=== PATIENT | male | born 1940 | race Caucasian/White ===

== ENCOUNTER → 2016-10-18 | Outpatient (CLI) | payer OTHER ==
[~2016-10-18] MED LIST: FENO54TA PO; FENOFIBRATE PO; GLC500 PO; INSU70IN2 SC; LISI20TA3 PO; MECL1TAB42 PO; MELO15TA4 PO; MULT60CA PO; MXZC25 PO; SIMV40TA2 PO
[2016-10-18 09:47] LABS: ALT/SGPT 25 U/L (12-78); AST/SGOT 15 U/L (15-37); BLOOD UREA NITROGEN 17 mg/dl (7-18); BUN/CREATININE RATIO 13.8 (10-20); CALCIUM 8.7 mg/dl (8.5-10.1); CARBON DIOXIDE 26 mmol/L (21-32); CHLORIDE 107 mmol/L (98-107); GLUCOSE 115 mg/dl (70-99); POTASSIUM 3.6 mmol/L (3.5-5.1); SODIUM 142 mmol/L (136-145)
[2016-10-18 09:51] LABS: ALB/GLOB RATIO 1.2 (0.9-2); ALKALINE PHOSPHATASE 62 U/L (45-117); CHOLESTEROL 114 mg/dl (0-200); CHOLESTEROL/HDL RATIO 2.3; HDL CHOLESTEROL 50 mg/dl; TRIGLYCERIDES 154 mg/dl (0-150); VERY LOW DENSITY LIPOPROT CALC 31 mg/dl
[2016-10-18 10:39] LABS: ESTIMATED AVERAGE GLUCOSE 160 mg/dl; HA1C FLAG Normal (Normal)
== END | disposition home or self-care (01) ==
LOC: C.LAB 07:03
PROVIDERS: ATTEND Internal Medicine
DX: E11.65 Type 2 diabetes mellitus with hyperglycemia (principal); E78.5 Hyperlipidemia, unspecified; E66.09 Other obesity due to excess calories

== ENCOUNTER → 2016-12-11 | Outpatient (CLI) | payer OTHER ==
[~2016-12-11] MED LIST changes: -FENO54TA PO; -MECL1TAB42 PO; -MELO15TA4 PO
--- NOTE | 2016-12-11 13:27 | DIAGNOSTIC IMAGING REPORT ---
Venous Doppler left leg LEFT VENOUS DOPP LOWER EXT UNILAT CLINICAL HISTORY: LLE PAIN Swelling, r/o DVT TECHNIQUE: Venous Doppler COMPARISON STUDY: None FINDINGS: Normal venous Doppler. 3 cm complex popliteal cyst. IMPRESSION: No evidence for deep venous thrombosis Electronically signed by: Tito Clark M.D. 12/11/2016 1:25 PM Dictated Date/Time: 12/11/2016 1:21 PM
== END | disposition home or self-care (01) ==
LOC: C.ULTRBC 12:36
PROVIDERS: ATTEND Orthopaedic Surgery
DX: M79.605 Pain in left leg (principal)

== ENCOUNTER → 2017-02-13 | Outpatient (CLI) | payer OTHER ==
[~2017-02-13] MED LIST changes: +FENO54TA PO; +MECL1TAB42 PO; +MELO15TA4 PO
[2017-02-13 10:05] LABS: BLOOD UREA NITROGEN 23 mg/dl (7-18); BUN/CREATININE RATIO 19.2 (10-20); CALCIUM 8.9 mg/dl (8.5-10.1); CARBON DIOXIDE 30 mmol/L (21-32); CHLORIDE 108 mmol/L (98-107); GLUCOSE 122 mg/dl (70-99); POTASSIUM 4.1 mmol/L (3.5-5.1); SODIUM 145 mmol/L (136-145)
[2017-02-13 10:52] LABS: ESTIMATED AVERAGE GLUCOSE 143 mg/dl; HA1C FLAG Normal (Normal)
== END | disposition home or self-care (01) ==
LOC: C.LAB 07:32
PROVIDERS: ATTEND Internal Medicine
DX: E11.9 Type 2 diabetes mellitus without complications (principal)

== ENCOUNTER → 2017-03-08 | Outpatient (CLI) | payer OTHER ==
--- NOTE | 2017-03-08 11:30 | DIAGNOSTIC IMAGING REPORT ---
BILATERAL CAROTID DOPPLER STUDY HISTORY: Mental status change NO HAND RIGGER COMPARISON: None. TECHNIQUE: Real-time, grayscale, and color Doppler sonography of the carotid arteries was performed. Imaging reviewed in the transverse and longitudinal planes. All measurements were calculated based on NASCET criteria. FINDINGS: Antegrade flow is seen in the bilateral vertebral arteries. The brachial pressures are hemodynamically similar. Minimal plaque formation The peak systolic velocity within the right ICA is 86. The peak systolic velocity within the left ICA is 96. The patient declined blood pressure cuff evaluation IMPRESSION: No hemodynamically significant stenosis seen within the carotid arteries. Electronically signed by: Tito Clark M.D. 03/08/2017 11:29 AM Dictated Date/Time: 03/08/2017 11:28 AM
--- NOTE | 2017-03-15 07:36 | CODING QUERY MEDICAL NECESSITY ---
CQSUPPORTING DIAGNOSIS NEEDED A supporting diagnosis is required for the test/procedure performed on this patient in order for us to be reimbursed by the patient's insurance. Please provide a supporting diagnosis for the following test/procedure listed below next to the test name along with your signature. *If there is no additional diagnosis for this patient that would support the following test/procedure please document that below next to the test/procedure. Test(s)/Procedure(s) that require a supporting diagnosis: DOS 03/08/17 NON-INVASIVE CEREBROBASCULAR ARTERIOGRAM Provider Signature: Date: Thank you Angelina Cordon Health Information Management Once completed, please kindly fax back to [phone] For questions please call [phone]
== END | disposition home or self-care (01) ==
LOC: C.ULTR 10:18
PROVIDERS: ATTEND Internal Medicine
DX: R42 Dizziness and giddiness (principal)

== ENCOUNTER → 2017-06-20 | Outpatient (CLI) | payer OTHER ==
[~2017-06-20] MED LIST changes: -FENO54TA PO; -MECL1TAB42 PO; -MELO15TA4 PO
[2017-06-20 09:39] LABS: BASO % 0.5 %; BASO ABS # 0.05 K/uL (0-0.2); COMPLETE YES; EOS % 2.8 %; IG% 0.1 %; LYMPH % 37.6 %; LYMPH ABS # 3.59 K/uL (1.2-3.4); MEAN CELL VOLUME 88.1 fL (80-100); MEAN CORPUSCULAR HEMOGLOBIN 29.3 pg (25-34); MEAN CORPUSCULAR HGB CONC 33.3 g/dl (32-36); MONO % 6.7 %; NEUT % 52.3 %; PLATELET COUNT 225 K/uL (130-400); RED BLOOD COUNT 4.88 M/uL (4.7-6.1); WHITE BLOOD COUNT 9.56 K/uL (4.8-10.8)
[2017-06-20 10:05] LABS: ESTIMATED AVERAGE GLUCOSE 154 mg/dl; HA1C FLAG Normal (Normal)
[2017-06-20 10:06] LABS: ALT/SGPT 22 U/L (12-78); AST/SGOT 18 U/L (15-37); BLOOD UREA NITROGEN 20 mg/dl (7-18); BUN/CREATININE RATIO 18.2 (10-20); CARBON DIOXIDE 28 mmol/L (21-32); CHLORIDE 106 mmol/L (98-107); CHOLESTEROL 145 mg/dl (0-200); GLUCOSE 114 mg/dl (70-99); POTASSIUM 3.7 mmol/L (3.5-5.1); SODIUM 141 mmol/L (136-145); TRIGLYCERIDES 229 mg/dl (0-150); VERY LOW DENSITY LIPOPROT CALC 46 mg/dl
[2017-06-20 10:09] LABS: ALB/GLOB RATIO 1.1 (0.9-2); ALKALINE PHOSPHATASE 60 U/L (45-117); CHOLESTEROL/HDL RATIO 3.1; HDL CHOLESTEROL 47 mg/dl
[2017-06-20 10:48] LABS: RATIO 10.2 mcg/mg (0-30.0)
== END | disposition home or self-care (01) ==
LOC: C.LAB 07:06
PROVIDERS: ATTEND Internal Medicine
DX: E11.9 Type 2 diabetes mellitus without complications (principal); I10 Essential (primary) hypertension; E78.5 Hyperlipidemia, unspecified

== ENCOUNTER 2017-09-06 08:19 | Emergency (ER) | payer OTHER ==
[~2017-09-06] VITALS: Ht 172.7 cm; Wt 105.0 kg
[2017-09-06 08:22] VITALS: TEMP 36.7; Ht 172.7 cm; Wt 105.0 kg
[2017-09-06] MEDS ORDERED: SODIUM CHLORIDE 0.9% 500ML 500 ML IV STA (08:41)
[2017-09-06] MEDS ORDERED: SCOPOLAMINE 1.5 MG TDSY TD STA (08:41)
--- NOTE | 2017-09-06 08:50 | EMERGENCY ROOM VISIT NOTE ---
History Report prepared by Torri: Yevgeniy Meeks Under the Supervision of: Dr. Artem Zuñiga M.D. First contact with patient: 08:31 Chief Complaint: VERTIGO Stated Complaint: VERTIGO,DIZZY,LIGHTED HEADED Nursing Triage Summary: Pt presents with c/o dizziness and lightheadedness that began approx midnight. Denies cp or headache. Pt states, "Maybe a little SOB" with exertion. Pt is diabetic, BSG last night was 270, 164 this morning. States normal is 110 in the morning. History of Present Illness The patient is a 77 year old male who presents to the Emergency Room with complaints of intermittent dizziness and lightheadedness beginning 8.5 hours ago. The patient states he was starting to go to sleep when he started falling against the wall on his way to bed. He reports he cannot stand or walk without getting dizzy, and he does not remember if it goes away. The patient notes moving his head from side to side causes mild dizziness. He states lying flat makes his discomfort go away. The patient reports he had similar symptoms back in February, was given a scopolamine patch, and told it was vertigo. He notes his blood sugar was high last night after consuming sweets. The patient states he was given meclizine at 0100 and 0630. He denies abdominal pain. Source of History: patient Onset: 8.5 hours ago Position: other (global) Quality: other (dizziness and lightheadedness) Timing: intermittent Modifying Factors (Worsening): other (standing, moving head from side to side) Modifying Factors (Relieving): other (lying down) Associated Symptoms: No abdominal pain Review of Systems See HPI for pertinent positives & negatives. A total of 10 systems reviewed and were otherwise negative. Past Medical & Surgical Medical Problems: (1) Diabetes (2) HLD (hyperlipidemia) (3) HTN (hypertension) Family History Patient reports no known family medical history. Social History Smoking Status: Former Smoker Marital Status: Occupation Status: retired Current/Historical Medications Scheduled Fenofibrate (Tricor), 54 MG PO DAILY Insulin Isophan/Regular (Novolin 70/30), 80 UNITS SC QAM Insulin Isophan/Regular (Novolin 70/30), 45 UNITS SC QPM Lisinopril (Prinivil), 20 MG PO BID Meloxicam (Meloxicam), 15 MG PO DAILY Metformin Hcl (Glucophage *), 500 MG PO BID Multiple Vitamins W/ Minerals (Preservision Areds 2), 1 CAP PO BID Simvastatin (Zocor), 40 MG PO QPM Triamterene/Hctz (Triamterene/Hctz 37.5-25MG Tab), 1 TAB PO QAM Scheduled PRN Meclizine Hcl (Meclizine Hcl), 1 TAB PO TID PRN for Dizziness or Vertigo Allergies Coded Allergies: Aspirin (Verified Adverse Reaction, Unknown, "BLEEDS IN STOMACH IF TAKES TOO MUCH", 09/16/15) Physical Exam Vital Signs Date Time Temp Pulse Resp B/P (MAP) Pulse Ox O2 Delivery O2 Flow Rate FiO2 09/06/17 12:26 68 20 137/80 97 09/06/17 11:52 61 20 155/75 97 Room Air 58 158/89 77 167/95 09/06/17 11:26 64 20 137/73 98 Room Air 09/06/17 11:26 97 Room Air 09/06/17 09:34 96 Room Air 09/06/17 09:33 59 16 129/66 96 Room Air 09/06/17 08:48 57 09/06/17 08:22 36.7 62 18 147/73 95 Room Air Physical Exam GENERAL: Patient is a healthy-appearing well-nourished 77 year old male. HEAD: Normocephalic atraumatic EYES: Ocular movements intact pupils equal and react to light. Horizontal nystagmus of John's Hallpike maneuver. OROPHARYNX mucous membranes are moist no exudates present no erythema or edema present NECK: Supple no nuchal rigidity CHEST: Good equal expansion LUNGS: Clear and equal to auscultation CARDIAC: Normal S1 and S2 ABDOMEN: Soft nontender no guarding BACK: No CVA tenderness EXTREMITIES: No pain upon palpation normal muscle strength in all groups no clubbing cyanosis or edema NEURO: Patient is following commands and answering questions appropriately. Alert and oriented x3 Cranial Nerves 2-12 grossly intact Medical Decision & Procedures Laboratory Results 09/06/17 08:45 Red Blood Count 4.37, Mean Corpuscular Volume 88.8, Mean Corpuscular Hemoglobin 29.5, Mean Corpuscular Hemoglobin Concent 33.2, Mean Platelet Volume 10.3, Neutrophils (%) (Auto) 51.2, Lymphocytes (%) (Auto) 34.7, Monocytes (%) (Auto) 10.5, Eosinophils (%) (Auto) 2.9, Basophils (%) (Auto) 0.4, Neutrophils # (Auto ) 4.09, Lymphocytes # (Auto) 2.77, Monocytes # (Auto) 0.84, Eosinophils # (Auto ) 0.23, Basophils # (Auto) 0.03 09/06/17 08:45 Test 09/06/17 08:45 09/06/17 08:49 09/06/17 11:20 White Blood Count 7.98 K/uL (4.8-10.8) Red Blood Count 4.37 M/uL (4.7-6.1) Hemoglobin 12.9 g/dL (14.0-18.0) Hematocrit 38.8 % (42-52) Mean Corpuscular Volume 88.8 fL (80-100) Mean Corpuscular Hemoglobin 29.5 pg (25-34) Mean Corpuscular Hemoglobin Concent 33.2 g/dl (32-36) Platelet Count 204 K/uL (130-400) Mean Platelet Volume 10.3 fL (7.4-10.4) Neutrophils (%) (Auto) 51.2 % Lymphocytes (%) (Auto) 34.7 % Monocytes (%) (Auto) 10.5 % Eosinophils (%) (Auto) 2.9 % Basophils (%) (Auto) 0.4 % Neutrophils # (Auto) 4.09 K/uL (1.4-6.5) Lymphocytes # (Auto) 2.77 K/uL (1.2-3.4) Monocytes # (Auto) 0.84 K/uL (0.11-0.59) Eosinophils # (Auto) 0.23 K/uL (0-0.5) Basophils # (Auto) 0.03 K/uL (0-0.2) RDW Standard Deviation 44.5 fL (36.4-46.3) RDW Coefficient of Variation 13.5 % (11.5-14.5) Immature Granulocyte % (Auto) 0.3 % Immature Granulocyte # (Auto) 0.02 K/uL (0.00-0.02) Anion Gap 7.0 mmol/L (3-11) Est Creatinine Clear Calc Drug Dose 63.2 ml/min Estimated GFR () 70.7 Estimated GFR (Non- 61.0 BUN/Creatinine Ratio 21.4 (10-20) Calcium Level 8.7 mg/dl (8.5-10.1) Total Bilirubin 0.2 mg/dl (0.2-1) Direct Bilirubin < 0.1 mg/dl (0-0.2) Aspartate Amino Transf (AST/SGOT) 16 U/L (15-37) Alanine Aminotransferase (ALT/SGPT) 22 U/L (12-78) Alkaline Phosphatase 60 U/L (45-117) Total Creatine Kinase 92 U/L (39-308) Creatine Kinase MB 1.8 ng/ml (0.5-3.6) Creatine Kinase MB Ratio 2.0 (0-3.0) Troponin I < 0.015 ng/ml (0-0.045) Total Protein 6.7 gm/dl (6.4-8.2) Albumin 3.3 gm/dl (3.4-5.0) Thyroid Stimulating Hormone (TSH) 1.170 uIu/ml (0.300-4.500) Bedside Glucose 171 mg/dl (70-99) Urine Color YELLOW Urine Appearance CLEAR (CLEAR) Urine pH 7.0 (4.5-7.5) Urine Specific [place] 1.021 (1.000-1.030) Urine Protein NEG (NEG) Urine Glucose (UA) TRACE (NEG) Urine Ketones NEG (NEG) Urine Occult Blood 2+ (NEG) Urine Nitrite NEG (NEG) Urine Bilirubin NEG (NEG) Urine Urobilinogen NEG (NEG) Urine Leukocyte Esterase MODERATE (NEG) Urine WBC (Auto) >30 /hpf (0-5) Urine RBC (Auto) 10-30 /hpf (0-4) Urine Hyaline Casts (Auto) 1-5 /lpf (0-5) Urine Epithelial Cells (Auto) >30 /lpf (0-5) Urine Bacteria (Auto) NEG (NEG) Labs reviewed by ED physician. Medications Administered Medications (Trade) Dose Ordered Sig/Kayla Route Start Time Stop Time Status Last Admin Dose Admin Sodium Chloride 500 ml @ 999 mls/hr Q31M STAT IV 09/06/17 08:41 09/06/17 09:12 DC 09/06/17 08:41 999 MLS/HR Scopolamine (Transderm-Scop Patch) 1.5 mg NOW STAT TD 09/06/17 08:41 09/06/17 08:43 DC 09/06/17 09:27 1.5 MG ECG Indication: other (dizziness and lightheadedness) Rate (beats per minute): 65 Rhythm: sinus rhythm Findings: no acute ischemic change, no ectopy, other (Old inferior infarct) ED Course 0834: Past medical records reviewed. The patient was evaluated in room A04B. A complete history and physical examination was performed. The patient states he would like to be treated for vertigo and would not like to receive a full work up. 0841: Ordered Scopolamine .5mg TD, Sodium Chloride 500 ml @ 999 mls/hr 1103: I reevaluated the patient, and he is feeling better. 1201: Upon reexamination the patient is resting and feeling better. I discussed results and treatment plan with the patient. He verbalizes agreement and understanding. The patient is ready for discharge. Medical Decision Differential diagnosis: Etiologies such as benign positional vertigo, dehydration, hypovolemia, anemia, tumor, infection, hypoglycemia, electrolyte abnormalities, cardiac sources, intracerebral event, toxicologic, neurologic, as well as others were entertained. This is a 77-year-old male who presents emergency department complaining of vertigo that presents during a period of high volume and high acuity to the emergency department. The patient reports she has a history of vertigo previously. He reports he recently had a CAT scan of the head and is refusing the recommendation for a CAT scan of the head. He has normal laboratory work. He was given a scopolamine patch and the patient has a very taken meclizine at home. Repeat examination revealed much improvement the patient's symptoms. I do feel that the patient is well enough to be discharged home for follow-up this primary care physician. Patient was in agreement with the treatment plan. Medication Reconcilliation Current Medication List: was personally reviewed by me Blood Pressure Screening Patient's blood pressure: Elevated blood pressure Blood pressure disposition: Referred to PCP Impression Primary Impression: Benign positional vertigo Scribe Attestation The scribe's documentation has been prepared under my direction and personally reviewed by me in its entirety. I confirm that the note above accurately reflects all work, treatment, procedures, and medical decision making performed by me. Departure Information Dispostion Home / Self-Care Prescriptions Meclizine Hcl (MECLIZINE HCL) 25 Mg Tab 1 TAB PO TID Y for Dizziness or Vertigo for 10 Days, #30 TAB Prov: Artem Zuñiga MD 09/06/17 Referrals Emerson Reyes M.D. (PCP) Forms HOME CARE DOCUMENTATION FORM, IMPORTANT VISIT INFORMATION, WORK / SCHOOL INSTRUCTIONS Patient Instructions ED BPV Vertigo, [facility] Additional Instructions Follow up with Dr Che's office You were found to have an elevated blood pressure today (>120 sytolic or >90 diastolic). Per medicare guidelines, you need to follow up with this blood pressure screening with your Primary Care Physician (PCP). For a new PCP call [phone]. You have been examined and treated today on an emergency basis only. This is not a substitute for, or an effort to provide, complete comprehensive medical care. It is impossible to recognize and treat all injuries or illnesses in a single emergency department visit. It is therefore important that you follow up closely with Dr Radames Claudio's office. Call as soon as possible for an appointment. Thank you for your time and consideration. I look forward to speaking with you again soon. Please don't hesitate to call us if you have any questions. Problem Qualifiers Primary Impression: Benign positional vertigo Laterality: unspecified laterality Qualified Codes: H81.10 - Benign paroxysmal vertigo, unspecified ear
[2017-09-06 09:02] LABS: BASO % 0.4 %; BASO ABS # 0.03 K/uL (0-0.2); COMPLETE YES; EOS % 2.9 %; HEMATOCRIT 38.8 % (42-52); IG% 0.3 %; LYMPH % 34.7 %; LYMPH ABS # 2.77 K/uL (1.2-3.4); MEAN CELL VOLUME 88.8 fL (80-100); MEAN CORPUSCULAR HEMOGLOBIN 29.5 pg (25-34); MEAN CORPUSCULAR HGB CONC 33.2 g/dl (32-36); MEAN PLATELET VOLUME 10.3 fL (7.4-10.4); MONO % 10.5 %; NEUT % 51.2 %; PLATELET COUNT 204 K/uL (130-400); RED BLOOD COUNT 4.37 M/uL (4.7-6.1); WHITE BLOOD COUNT 7.98 K/uL (4.8-10.8)
[2017-09-06] MEDS ORDERED: FENO54TA PO (09:11)
[2017-09-06] MEDS ORDERED: MELO15TA4 PO (09:11)
[2017-09-06 09:18] LABS: ALT/SGPT 22 U/L (12-78); BLOOD UREA NITROGEN 25 mg/dl (7-18); BUN/CREATININE RATIO 21.4 (10-20); CALCIUM 8.7 mg/dl (8.5-10.1); CARBON DIOXIDE 27 mmol/L (21-32); CHLORIDE 108 mmol/L (98-107); CREATININE 1.15 mg/dl (0.60-1.40); GLUCOSE 187 mg/dl (70-99); POTASSIUM 3.9 mmol/L (3.5-5.1); SODIUM 141 mmol/L (136-145)
[2017-09-06 09:29] LABS: ALKALINE PHOSPHATASE 60 U/L (45-117); AST/SGOT 16 U/L (15-37)
[2017-09-06 11:26] VITALS: O2SAT 97
[2017-09-06] MEDS ORDERED: MECL1TAB42 PO (12:03)
[2017-09-06 12:22] LABS: MANUAL MICROSCOPIC REQUIRED? NO; REVIEW REQ? YES; URINE APPEARANCE CLEAR (CLEAR); URINE BILIRUBIN NEG (NEG); URINE COLOR YELLOW; URINE SPECIFIC GRAVITY 1.021 (1.000-1.030); UROBILINOGEN NEG (NEG)
[2017-09-06 12:23] LABS: URINE EPITHELIAL CELL AUTO >30 /lpf (0-5); URINE NITRITE NEG (NEG)
[2017-09-06 12:26] VITALS: BP 137/80; PULSE 68; O2SAT 97
== END 2017-09-06 12:39 | disposition home or self-care (01) ==
LOC: C.EDB 08:20 → C.EDA 12:39
DX: H81.10 Benign paroxysmal vertigo, unspecified ear (principal); E11.9 Type 2 diabetes mellitus without complications; E78.5 Hyperlipidemia, unspecified; I10 Essential (primary) hypertension; Z87.891 Personal history of nicotine dependence; Z79.4 Long term (current) use of insulin; Z79.899 Other long term (current) drug therapy

== ENCOUNTER → 2017-10-24 | Outpatient (CLI) | payer OTHER ==
[~2017-10-24] MED LIST changes: +FENO54TA PO; -FENOFIBRATE PO; +MELO15TA4 PO
[2017-10-24 09:48] LABS: HEMOGLOBIN A1C 6.7 % (4.5-5.6)
[2017-10-24 10:08] LABS: BLOOD UREA NITROGEN 19 mg/dl (7-18); CALCIUM 8.7 mg/dl (8.5-10.1); CARBON DIOXIDE 29 mmol/L (21-32); CREATININE 1.09 mg/dl (0.60-1.40); GLUCOSE 90 mg/dl (70-99); POTASSIUM 3.6 mmol/L (3.5-5.1); SODIUM 140 mmol/L (136-145)
[2017-10-24 10:11] LABS: CHOLESTEROL 106 mg/dl (0-200); LDL CHOLESTEROL (DIRECT) 46 mg/dl
== END | disposition home or self-care (01) ==
LOC: C.LAB 07:08
PROVIDERS: ATTEND Internal Medicine
DX: I10 Essential (primary) hypertension (principal); E78.5 Hyperlipidemia, unspecified; E11.65 Type 2 diabetes mellitus with hyperglycemia

== ENCOUNTER → 2018-02-27 | Outpatient (CLI) | payer OTHER ==
[~2018-02-27] MED LIST changes: +MELO-83 PO; -MELO15TA4 PO
[2018-02-27 09:56] LABS: ALBUMIN 3.6 gm/dl (3.4-5.0); ALKALINE PHOSPHATASE 66 U/L (45-117); ALT/SGPT 25 U/L (12-78); AST/SGOT 15 U/L (15-37); BLOOD UREA NITROGEN 23 mg/dl (7-18); CALCIUM 8.9 mg/dl (8.5-10.1); CARBON DIOXIDE 31 mmol/L (21-32); CHOLESTEROL 112 mg/dl (0-200); CREATININE 1.24 mg/dl (0.60-1.40); GLUCOSE 114 mg/dl (70-99); LDL CHOLESTEROL CALCULATED 42 mg/dl; POTASSIUM 3.5 mmol/L (3.5-5.1); SODIUM 142 mmol/L (136-145); TOTAL PROTEIN 7.4 gm/dl (6.4-8.2)
[2018-02-27 10:01] LABS: HEMOGLOBIN A1C 7.2 % (4.5-5.6)
== END | disposition home or self-care (01) ==
LOC: C.LAB 07:24
PROVIDERS: ATTEND Internal Medicine
DX: E11.9 Type 2 diabetes mellitus without complications (principal); E78.5 Hyperlipidemia, unspecified; I10 Essential (primary) hypertension

== ENCOUNTER 2019-03-23 10:09 | Observation (INO) ==
[2019-03-23 11:33] LABS: Basophils # (auto) 0.05 K/uL (0-0.2); Basophils % (auto) 0.6 %; Eosinophils # (auto) 0.16 K/uL (0-0.5); Eosinophils % (auto) 1.8 %; Hematocrit (blood only) 42.1 % (42-52); Hemoglobin 14.1 g/dL (14.0-18.0); Immature Granulocytes # (auto) 0.03 K/uL (0.00-0.02); Immature Granulocytes % (auto) 0.3 %; Lymphocytes # (auto) 2.32 K/uL (1.2-3.4); Lymphocytes % (auto) 26.5 %; Mean Corpuscular Hgb Conc 33.5 g/dL (32-36); Mean Corpuscular Volume 87.5 fL (80-100); Mean Platelet Volume 10.5 fL (7.4-10.4); Monocytes # (auto) 0.87 K/uL (0.11-0.59); Neutrophils # (auto) 5.31 K/uL (1.4-6.5); Neutrophils % (auto) 60.8 %; Platelet Count 189 K/uL (130-400); RDW Coefficient of Variation 14.3 % (11.5-14.5); RDW Standard Deviation 46.3 fL (36.4-46.3); Red Blood Count 4.81 M/uL (4.7-6.1); White Blood Count 8.74 K/uL (4.8-10.8)
--- NOTE | 2019-03-23 11:35 | XRay Report ---
XR chest 1V portable CLINICAL HISTORY: Weakness. COMPARISON STUDY: Chest radiograph July 18, 2018. FINDINGS: Lung volumes are normal. There is no pneumothorax or pleural effusion. Mild to moderate car diomegaly is noted. There is no evidence for pulmonary edema. No consolidation to suggest pneumonia i s noted. IMPRESSION: No acute cardiopulmonary findings. Electronically signed by: Herson Richards M.D. 03/23/2019 11:34 AM
[2019-03-23 11:49] LABS: Alanine Aminotransferase 24 U/L (12-78); Albumin Level 3.9 gm/dl (3.4-5.0); Aspartate Aminotransferase 17 U/L (15-37); BUN Creatinine Ratio 15.7 (10-20); Blood Urea Nitrogen 22 mg/dl (7-18); Calcium 9.3 mg/dl (8.5-10.1); Carbon Dioxide 29 mmol/L (21-32); Chloride 103 mmol/L (98-107); Creatinine Clr Calc Pharmacy 52.5 ml/min; Est GFR (African American) 56.9; Est GFR (Non-African American) 49.1; Glucose 293 mg/dl (70-99); Magnesium 2.3 mg/dl (1.8-2.4); Partial Thromboplastin Ratio 0.9; Partial Thromboplastin Time 23.6 Seconds (21.0-31.0); Prothrombin Time 10.2 Seconds (9.0-12.0); Sodium 141 mmol/L (136-145)
[2019-03-23 11:54] LABS: Albumin Globulin Ratio 1.1 (0.9-2); Alkaline Phosphatase 74 U/L (45-117); Bilirubin,Total 0.3 mg/dl (0.2-1); Globulin 3.5 gm/dl (2.5-4.0); Total Protein 7.4 gm/dl (6.4-8.2); Troponin I < 0.015 ng/ml (0-0.045)
--- NOTE | 2019-03-23 12:08 | CT Scan Report ---
CT SCAN OF THE BRAIN WITHOUT IV CONTRAST CLINICAL HISTORY: Strokelike symptoms. COMPARISON STUDY: CT of the brain dated 05/25/2012. TECHNIQUE: Unenhanced axial CT scan of the brain is performed from the vertex to the skull base. A do se lowering technique was utilized adhering to the principles of ALARA. CT DOSE: 537.48 mGy.cm FINDINGS: Brain parenchyma: There are age-related involutional changes noting mild subcortical and periventric ular microangiopathic change. There is no hemorrhage, mass effect, or evidence of acute territorial i schemia by CT criteria. Velez-white matter differentiation is preserved. No extra-axial fluid collecti on is seen. Ventricles, sulci, cisterns: Prominent secondary to involutional change. Intracranial vasculature: There is atherosclerotic calcification of the cavernous carotid and vertebr al arteries. Calvarium: Unremarkable. Sinuses and mastoids: The visualized paranasal sinuses are clear. The mastoid air cells are well pneu matized. Orbits: The bony orbits are grossly intact. There are bilateral ocular lens implants. IMPRESSION: There is no hemorrhage, mass effect, or evidence of acute territorial ischemia by CT crit yg. Electronically signed by: Gerard Louise M.D. 03/23/2019 12:07 PM
--- NOTE | 2019-03-23 15:33 | History & Physical Report ---
Date of Service March 23, 2019 Assessment & Plan (1) RUE weakness: Concerning for possible CVA given DM, HTN pt CT head neg for acute MRI/MRA, ECHO pending TSH, B12 pending CMP, PRP WNL t/c Lyme testing if neg workup ?? nerve compression related to MSK issue given R scapular pain?? t/c EMG as outpt Hold on PT/OT unless clear CVA noted Hold on neuro c/s for now given other potential etiologies (2) HTN (hypertension): continue home meds (3) HLD (hyperlipidemia): continue home meds panel on 02/19 was WNL with HDL 46 and LDL 53, will not repeat (4) Diabetes: 70/30 as at home with SSI PRN A1c 02/19 7.0, will not repeat (5) DVT prophylaxis: SCDs (6) Macular degeneration: History of Present Illness Primary Care Provider: Emerson Ocampo MD 78 y/o M c/o R hand weakness. Pt states that he noted R shoulder pain around his shoulder blade on night. He saw his chiropractor on Saturday AM and was adjusted. He states that the pain was not gone, but it was better. He noted decreased R appeals coordinator strength on Saturday morning while he was trying to draw up his insulin. This has increased over the last few days and this AM he also noted some R UE swelling that has since resolved. His L hand has been WNL. This has never happened to him prior. He has no issues with LE strength. No lightheadedness/dizziness, vision changes, confusion. He states that his BS have been elevated the last few days as well. He is usually <120 in the AM and was 173 today. He has had several HS readings in the 200s. His A1c on 02/19 was 7.0. He noted a hypoglycemic episode in the 60s x1. He saw his chiropractor this AM but was directed to the ED due to the appeals coordinator issues. Pt notes a R 5th trigger finger. He states that if he pushes on the nodule noted on on his palm, it will cause pain to the shoulder blade. Pt has no other concerns. Pt denies fever, SOB, chest pain, abd pain, n/v/c/d, LE pain. He does note some L LE swelling that is minimal, but just slightly larger than the R. Pt is concerned that he will not be able to tolerate MRI and is requesting something for anxiety related to imaging. Allergies Allergy/AdvReac Type Severity Reaction Status Date / Time ibuprofen AdvReac Unknown "BLEEDS IN Verified 03/23/19 11:46 STOMACH IF TAKES TOO MUCH" Home Medications Home Medications Medication Instructions Recorded Confirmed Type Novolin 70/30 U-100 Insulin 45 units SUBCUT QPM 07/14/18 03/23/19 History Novolin 70/30 U-100 Insulin 80 units SUBCUT QAM 07/14/18 03/23/19 History PreserVision AREDS-2 1 tab PO BID 07/14/18 03/23/19 History fenofibrate 54 mg PO QPM 07/14/18 03/23/19 History latanoprost (PF) 1 drp OPB QPM 07/14/18 03/23/19 History lisinopril 20 mg PO BID 07/14/18 03/23/19 History metformin 500 mg PO BID 07/14/18 03/23/19 History simvastatin 40 mg PO PM 07/14/18 03/23/19 History triamterene-hydrochlorothiazid 1 cap PO QAM 07/14/18 03/23/19 History Past Med/Surg History Medical History Chronic back pain TO LEFT LEG Diabetes mellitus, type 2 Hyperlipidemia Hypertension Wet senile macular degeneration BILATERAL Surgical History History of cataract surgery BILATERALLY WITH IOL IMPLANTS History of tonsillectomy Family History Son Family history of diabetes mellitus Father , 48 y/o s/p CA Myocardial infarction Brother , 48 y/o s/p CA, multiple CVA prior Stroke Myocardial infarction Social History Preferred Language: [place] Communication Ability: Effective Visual Impairment: Partially Limited Beliefs That Will Affect Care: None marital status: / Current Living Situation: Spouse Feels Safe at Home: Yes Smoking Status: Former smoker Tobacco Type: cigarettes Smoking End Date: 1989 Second Hand Exposure: No Hx Alcohol Use: No Hx Substance Use: No Review of Systems Review of Systems: Pertinent positives and negatives reviewed in HPI--all others negative Physical Exam Constitutional: WD/WN, vitals as above Eyes: normal visual galo by confrontation and + anicteric sclerae Neck: normal visual inspection and trachea midline Respiratory: normal respiratory effort, lungs clear to auscultation Cardiovascular: Rate/Rhythm: regular rate and regular rhythm Gastrointestinal (Abdomen): Inspection/Auscultation: abdomen not distended Percussion/Palpation: abdomen soft; abdomen nontender Musculoskeletal: Head/Neck/Chest: normocephalic and head atraumatic negative for UE edema R scapula TTP Able to evoke R scapula pain with palpation of R palm just inferior to base of 5th carpal Trace L LE edema, peripheral pulses intact Skin: no rashes, warm and dry Neurologic: CN's II-XI intact bilaterally and awake; not confused Speech / Cognition: normal speech Psychiatric: A+Ox3, euthymic affect Results & Data Vital Signs (Past 12 Hours) Vital Signs Temp Pulse Pulse Resp BP BP Pulse Ox 03/23/19 14:00 51 L 18 146/72 H 97 03/23/19 10:22 36.5 C 71 20 188/80 H 97 Diagnostic Findings CXR: neg for acute CT head: neg for acute ECG Additional Comments: Sinus arrhythmia Code Status & VTE Plan Code Status Full code, although pt states no prolonged mechanical life support, feeding tubes, etc is present and agrees VTE Prophylaxis Plan VTE Prophylaxis will be ordered: Yes
[2019-03-23] MEDS ORDERED: GLUCOSE 10 TABS/TUBE PO PRN (16:16)
[2019-03-23] MEDS ORDERED: DEXTROSE 50% 50 ML SYRINGE IV PRN (16:16)
[2019-03-23] MEDS ORDERED: ACETAMINOPHEN 325 MG TAB PO PRN (16:16)
[2019-03-23] MEDS ORDERED: GLUCAGON FOR INJ 1 MG VIAL SQ PRN (16:16)
[2019-03-23] MEDS ORDERED: LORazepam 0.5 MG/1 ML VIAL IV PRN (16:16)
[2019-03-23] MEDS ORDERED: MAGNESIUM HYDROXIDE SUSP 30 ML UDC PO PRN (16:16)
[2019-03-23] MEDS ORDERED: GLUCOSE 40% GEL 15 GM TUBE PO PRN (16:16)
[2019-03-23] MEDS ORDERED: ONDANSETRON INJ 2 MG/ML 2 ML VIAL IV PRN (16:16)
[2019-03-23] MEDS ORDERED: CARBOHYDRATES FOR HYPOGLYCEMIA PO PRN (16:16)
--- NOTE | 2019-03-23 17:06 | Emergency Department Note ---
Entered by Sakshi Bergman acting as a scribe for Tony Bailey DO History of Present Illness General Chief complaint: Weakness Stated complaint: RIGHT ARM PAIN, DR MALVIN, WEAKNESS Source: patient History of Present Illness Provider complaint: right arm weakness Onset (ago): day(s) 2 Location: upper extremity and right Pain Consistency: + constant and + other (worsening) Maximum Pain Intensity: 4 Quality: + other (weakness) Associated symptoms: + denies other symptoms (trouble with speech or ambulation) and + shortness of breath; no chest pain and no headaches The patient is a 78 year old male who presents to the Emergency Department with right arm weakness over the last 2 days. He states that he has been losing strength in his right arm and states that it has been constant and worsening. The patient states that his right hand and lower right arm were swollen. The patient also states that he gets right shoulder pain. He denies difficulty ambulating or difficulty with his speech. The patient also denies having a headache and chest pain but does report shortness of breath when he goes up and down steps. He states that he called his PCP who referred him here. The patient reports a history of hypertension and diabetes. Home Medications Home Medications Medication Instructions Recorded Confirmed Type Novolin 70/30 U-100 Insulin 45 units SUBCUT QPM 07/14/18 03/23/19 History Novolin 70/30 U-100 Insulin 80 units SUBCUT QAM 07/14/18 03/23/19 History PreserVision AREDS-2 1 tab PO BID 07/14/18 03/23/19 History fenofibrate 54 mg PO QPM 07/14/18 03/23/19 History latanoprost (PF) 1 drp OPB QPM 07/14/18 03/23/19 History lisinopril 20 mg PO BID 07/14/18 03/23/19 History metformin 500 mg PO BID 07/14/18 03/23/19 History simvastatin 40 mg PO PM 07/14/18 03/23/19 History triamterene-hydrochlorothiazid 1 cap PO QAM 07/14/18 03/23/19 History Allergies Allergy/AdvReac Type Severity Reaction Status Date / Time ibuprofen AdvReac Unknown "BLEEDS IN Verified 03/23/19 11:46 STOMACH IF TAKES TOO MUCH" Past Med/Surg History Medical History Chronic back pain TO LEFT LEG Diabetes mellitus, type 2 Hyperlipidemia Hypertension Wet senile macular degeneration BILATERAL Surgical History History of cataract surgery BILATERALLY WITH IOL IMPLANTS History of tonsillectomy Family History Son Family history of diabetes mellitus Father , 48 y/o [place]/p [place] Myocardial infarction Brother , 48 y/o [place]/p [place], multiple CVA prior Stroke Myocardial infarction Social History Preferred Language: Lithuanian Communication Ability: Effective Visual Impairment: Partially Limited Beliefs That Will Affect Care: None marital status: / Current Living Situation: Spouse Feels Safe at Home: Yes Smoking Status: Former smoker Tobacco Type: cigarettes Smoking End Date: 1989 econd Hand Exposure: No Hx Alcohol Use: No Hx Substance Use: No Review of Systems See HPI for pertinent positives & negatives. and A total of 10 systems reviewed and were otherwise negative Physical Exam Vital Signs Vital Signs - 24 hr 03/23/19 10:22 03/23/19 14:00 Temperature 36.5 C Temperature Source Oral Sepsis Recent Fever Within 48 Hours No Sepsis New/Unexplained Change in Mental Status No Sepsis Action Taken by Nursing No Action Required Pulse Rate 71 Pulse Rate [Right Finger] 51 L Pulse Strength Normal Respiratory Rate 20 18 Respiratory Effort / Characteristics Non-Labored Spontaneous Non-Labored Spontaneous Respiratory Depth Normal Normal Respiratory Pattern Regular Regular Blood Pressure 188/80 H Blood Pressure [Right Arm] 146/72 H Blood Pressure Mean 116 Blood Pressure Mean [Right Arm] 96 Pulse Oximetry 97 97 Oxygen Delivery Method Room Air Room Air GENERAL: Patient is awake, alert, and in no acute distress.Patient is resting comfortably and showing no signs of anxiety EYES: The conjunctivae are clear. The pupils are round and reactive. EARS, NOSE, MOUTH AND THROAT: The nose is without any evidence of any deformity. Mucous membranes are moist.Tongue is midline NECK: The neck is nontender and supple. RESPIRATORY: Normal respiratory effort is noted. There is no evidence of wheezing rhonchi or rales to auscultation. CARDIOVASCULAR: Regular rate and rhythm noted. There no murmurs rubs or gallops normal S1 normal S2 GASTROINTESTINAL: The abdomen is soft. Bowel sounds are present in all quadran ts. Abdomen is nontender. MUSCULOSKELETAL/EXTREMITIES: There is no evidence of gross deformity. Full range of motion is noted in the hips and shoulders. SKIN: There is no obvious evidence of any rash. There are no petechiae, pallor or cyanosis noted. NEUROLOGIC: Patient is awake alert and oriented x3. No facial droop is appreciated. 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 There is a slight drift in the right upper extremity. No weakness in the lower extremities. Course 1056: The patient was evaluated in room C5. A history and physical were performed. 1236: I reevaluated the patient and updated him on his results. He verbalized agreement and understanding of the treatment plan. 1238: I discussed the patient's case with Dr. Yanci Jimenes who will evaluate the patient for further management. Consultations Consultation #1: Dr. Yanci Jimenes Time: 12:38 Medical Decision Making Differential Diagnosis Differential includes acute coronary syndrome, myocardial infarction, CVA, TIA, anemia, infection, pneumonia, UTI, pyelonephritis, poor nutrition, dehydration, electrolyte disturbance,hypoglycemia. Medical Records Attestation: I reviewed the patient's medical records. Home Medications Current Medication List: was personally reviewed by me Laboratory Data Attestation: I reviewed the patient's lab results. Result diagrams: 03/23/19 11:15 03/23/19 11:15 Lab Results 03/23/19 03/23/19 03/23/19 Range/Units 11:08 11:15 11:15 WBC 8.74 (4.8-10.8) K/uL RBC 4.81 (4.7-6.1) M/uL Hgb 14.1 (14.0-18.0) g/dL Hct 42.1 (42-52) % MCV 87.5 (80-100) fL MCH 29.3 (25-34) pg MCHC 33.5 (32-36) g/dL RDW Std Deviation 46.3 (36.4-46.3) fL RDW Coeff of Summer 14.3 (11.5-14.5) % Plt Count 189 (130-400) K/uL MPV 10.5 H (7.4-10.4) fL Immature Gran % (Auto) 0.3 % Neut % (Auto) 60.8 % Lymph % (Auto) 26.5 % Emmons % (Auto) 10.0 % Eos % (Auto) 1.8 % Baso % (Auto) 0.6 % Immature Gran # (Auto) 0.03 H (0.00-0.02) K/uL Neut # (Auto) 5.31 (1.4-6.5) K/uL Lymph # (Auto) 2.32 (1.2-3.4) K/uL Emmons # (Auto) 0.87 H (0.11-0.59) K/uL Eos # (Auto) 0.16 (0-0.5) K/uL Baso # (Auto) 0.05 (0-0.2) K/uL PT 10.2 (9.0-12.0) Seconds INR 1.0 (0.9-1.1) APTT 23.6 (21.0-31.0) Seconds PTT Ratio 0.9 Sodium (136-145) mmol/L Potassium (3.5-5.1) mmol/L Chloride (98-107) mmol/L Carbon Dioxide (21-32) mmol/L Anion Gap (3-11) BUN (7-18) mg/dl Creatinine (0.6-1.4) mg/dl Est Cr Clr Drug Dosing ml/min Est GFR ( Amer) Est GFR (Non-Af Amer) BUN/Creatinine Ratio (10-20) Glucose (70-99) mg/dl POC Glucose 285 H (70-99) Calcium (8.5-10.1) mg/dl Magnesium (1.8-2.4) mg/dl Total Bilirubin (0.2-1) mg/dl AST (15-37) U/L ALT (12-78) U/L Alkaline Phosphatase (45-117) U/L Troponin I (0-0.045) ng/ml Total Protein (6.4-8.2) gm/dl Albumin (3.4-5.0) gm/dl Globulin (2.5-4.0) gm/dl Albumin/Globulin Ratio (0.9-2) 03/23/19 Range/Units 11:15 WBC (4.8-10.8) K/uL RBC (4.7-6.1) M/uL Hgb (14.0-18.0) g/dL Hct (42-52) % MCV (80-100) fL MCH (25-34) pg MCHC (32-36) g/dL RDW Std Deviation (36.4-46.3) fL RDW Coeff of Summer (11.5-14.5) % Plt Count (130-400) K/uL MPV (7.4-10.4) fL Immature Gran % (Auto) % Neut % (Auto) % Lymph % (Auto) % Emmons % (Auto) % Eos % (Auto) % Baso % (Auto) % Immature Gran # (Auto) (0.00-0.02) K/uL Neut # (Auto) (1.4-6.5) K/uL Lymph # (Auto) (1.2-3.4) K/uL Emmons # (Auto) (0.11-0.59) K/uL Eos # (Auto) (0-0.5) K/uL Baso # (Auto) (0-0.2) K/uL PT (9.0-12.0) Seconds INR (0.9-1.1) APTT (21.0-31.0) Seconds PTT Ratio Sodium 141 (136-145) mmol/L Potassium 4.0 (3.5-5.1) mmol/L Chloride 103 (98-107) mmol/L Carbon Dioxide 29 (21-32) mmol/L Anion Gap 8.0 (3-11) BUN 22 H (7-18) mg/dl Creatinine 1.37 (0.6-1.4) mg/dl Est Cr Clr Drug Dosing 52.5 ml/min Est GFR ( Amer) 56.9 Est GFR (Non-Af Amer) 49.1 BUN/Creatinine Ratio 15.7 (10-20) Glucose 293 H (70-99) mg/dl POC Glucose (70-99) Calcium 9.3 (8.5-10.1) mg/dl Magnesium 2.3 (1.8-2.4) mg/dl Total Bilirubin 0.3 (0.2-1) mg/dl AST 17 (15-37) U/L ALT 24 (12-78) U/L Alkaline Phosphatase 74 (45-117) U/L Troponin I < 0.015 (0-0.045) ng/ml Total Protein 7.4 (6.4-8.2) gm/dl Albumin 3.9 (3.4-5.0) gm/dl Globulin 3.5 (2.5-4.0) gm/dl Albumin/Globulin Ratio 1.1 (0.9-2) Imaging Data Radiologist's Impression: Radiology results as stated below per my review and the radiologist's interpretation: XR chest 1V portable CLINICAL HISTORY: Weakness. COMPARISON STUDY: Chest radiograph July 18, 2018. FINDINGS: Lung volumes are normal. There is no pneumothorax or pleural effusion. Mild to moderate cardiomegaly is noted. There is no evidence for pulmonary edema. No consolidation to suggest pneumonia is noted. IMPRESSION: No acute cardiopulmonary findings. Electronically signed by: Herson Richards M.D. 03/23/2019 11:[address] SCAN OF THE BRAIN WITHOUT IV CONTRAST CLINICAL HISTORY: Strokelike symptoms. COMPARISON STUDY: CT of the brain dated 05/25/2012. TECHNIQUE: Unenhanced axial CT scan of the brain is performed from the vertex to the skull base. A dose lowering technique was utilized adhering to the principles of ALARA. CT DOSE: 537.48 mGy.cm FINDINGS: Brain parenchyma: There are age-related involutional changes noting mild subcortical and periventricular microangiopathic change. There is no hemorrhage, mass effect, or evidence of acute territorial ischemia by CT criteria. Velez- white matter differentiation is preserved. No extra-axial fluid collection is seen. Ventricles, sulci, cisterns: Prominent secondary to involutional change. Intracranial vasculature: There is atherosclerotic calcification of the cavernous carotid and vertebral arteries. Calvarium: Unremarkable. Sinuses and mastoids: The visualized paranasal sinuses are clear. The mastoid air cells are well pneumatized. Orbits: The bony orbits are grossly intact. There are bilateral ocular lens implants. IMPRESSION: There is no hemorrhage, mass effect, or evidence of acute territorial ischemia by CT criteria. Electronically signed by: Gerard Louise M.D. 03/23/2019 12:07 PM ECG Data Attestation: I personally reviewed and interpreted this ECG as follows: Indication: weakness Rate (beats per minute): 60 Rhythm: normal sinus Findings: + other (lateral ST and T wave abnormalities); no PAC, no PVC and no e ctopy Comparison ECG Date: from (07/18/18) Change: no significant change Blood Pressure Blood Pressure Findings: Elevated blood pressure Blood Pressure Disposition: further management by hospitalist MDM Narrative The patient is a 78-year-old male who presented to the emergency department for an evaluation of right-sided weakness in the arm. The patient states that he is been having difficulty using his arm. He is normally very dexterous with his hand. 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 I discussed the patient's laboratory and radiographic studies with him. He does have significant risk factors for stroke. For this reason I also discussed his case with the on-call [facility] hospitalist. They have agreed to evaluate the patient in the emergency department for further management and disposition. Likely the patient will require further studies to evaluate if there is a stroke causing his symptoms as well as what may have caused a stroke. I discussed this with the patient and he was agreeable to further evaluation. Impression & Plan RUE weakness, Weakness Discharge Plan Visit Data *Final* Discharge Date/Time: 03/23/19 15:40 Chief Complaint: Weakness Stated Complaint: RIGHT ARM PAIN, DR SENT, WEAKNESS ED Provider: Tony Bailey Discharge Problem: RUE weakness, Weakness Patient Disposition: Admitted As Inpatient Discharge Instructions Interventions: ED Discharge Assessment Last Done: 03/23/19 15:40 The scribe's documentation has been prepared under my direction and personally reviewed by me in its entirety. I confirm that the note above accurately reflects all work, treatment, procedures, and medical decision making performed by me.
[2019-03-23] MEDS ORDERED: INSULIN HUMAN 70% NPH/30% REGULAR SQ SCH (18:30)
[2019-03-23] MEDS ORDERED: METFORMIN HCL 500 MG TAB PO SCH (19:00)
[2019-03-23] MEDS: INSULIN ASPART 100 UNITS/ML 3 ML PEN SC SCH ×2 (19:22→20:43)
[2019-03-23] MEDS: LISINOPRIL 20 MG TAB PO SCH (20:41)
[2019-03-23] MEDS: CEROVITE ADV FORMULA TAB PO SCH (20:41)
[2019-03-23] MEDS ORDERED: SIMVASTATIN 40 MG TAB PO SCH (21:00)
[2019-03-23] MEDS ORDERED: LATANOPROST 0.005% OP SOLN 2.5 ML BTL OPB SCH (21:00)
[2019-03-23] MEDS: FENOFIBRATE - ORDER AWAITING ACTION SCH (22:02)
--- NOTE | 2019-03-23 22:04 | Magnetic Resonance Report ---
Brain MRI WITHOUT CONTRAST HISTORY: Right-sided hand weakness. TECHNIQUE: Multiplanar multisequence MRI of the brain was performed without the use of contrast. COMPARISON STUDY: Head CT 03/23/2019. FINDINGS: Motion artifact. There is no definite mass, hematoma, midline shift, or acute infarct. The paranasal sinuses are clear. The mastoid air cells are clear. The ventricles and sulci demonstrate mi ld age-related involutional changes. Scattered foci of T2 hyperintensity seen within the periventricu lar and subcortical white matter are nonspecific but suggestive of mild microvascular ischemic change s. The major vascular flow voids at the skull base are well-maintained. IMPRESSION: Motion artifact. No definite acute intracranial abnormality. Electronically signed by: Mp Granados M.D. 03/23/2019 10:03 PM
--- NOTE | 2019-03-23 22:06 | Magnetic Resonance Report ---
Brain MRA HISTORY: Right hand weakness. TECHNIQUE: 3-D [id number] MRA of the brain was performed without contrast. COMPARISON STUDY: None. FINDINGS: Motion artifact results in suboptimal evaluation of the distal cerebral arteries. However, the intracranial internal carotid arteries, distal vertebral arteries, and basilar artery are widely patent. There is no significant stenosis, occlusion, or aneurysm seen within the bilateral ACAs, MCAs , or blood or blood bank technician. IMPRESSION: Motion artifact results in suboptimal evaluation the distal cerebral arteries. However, no significan t stenosis, occlusion, or aneurysm identified within the [facility] [place]. Electronically signed by: Mp Granados M.D. 03/23/2019 10:05 PM
--- NOTE | 2019-03-23 23:03 | Magnetic Resonance Report ---
NECK CTA HISTORY: Right hand weakness. stroke like sx TECHNIQUE: Multiaxial CT images of the neck were performed following the intravenous administration o f contrast to evaluate the major cervical vessels. Maximum intensity projection images were also obta ined. All measurements were calculated based on NASCET criteria. A dose lowering technique was utili zed adhering to the principles of ALARA. COMPARISON STUDY: Carotid Doppler study 03/08/2017. FINDINGS: The aortic arch and proximal great vessels are widely patent. There is no significant sten osis, occlusion, or dissection identified within the bilateral common carotid, internal carotid, or v ertebral arteries. IMPRESSION: No significant stenosis, occlusion, or dissection identified within the carotid or vertebral arteries . Electronically signed by: Mp Granados M.D. 03/23/2019 11:02 PM
[2019-03-24] MEDS ORDERED: PERFLUTREN LIPID MICROSPHERE (DEFINITY) IV ONE (06:52)
[2019-03-24] MEDS ORDERED: INSULIN HUMAN 70% NPH/30% REGULAR SQ SCH (07:30)
[2019-03-24] MEDS: FENOFIBRATE - ORDER AWAITING ACTION SCH ×2 (07:45→15:05)
[2019-03-24] MEDS: LISINOPRIL 20 MG TAB PO SCH (07:46)
[2019-03-24] MEDS: CEROVITE ADV FORMULA TAB PO SCH (07:46)
[2019-03-24] MEDS: INSULIN ASPART 100 UNITS/ML 3 ML PEN SC SCH ×3 (08:23→17:31)
--- NOTE | 2019-03-24 08:31 | Hospitalist Progress Note ---
Date of Service March 24, 2019 Assessment & Plan (1) RUE weakness: Concerning for possible CVA given DM, HTN pt CT head neg for acute MRI negative/MRA negative, ECHO pending TSH, B12 normal CMP, PRP WNL t/c Lyme testing if neg workup ?? nerve compression related to MSK issue given R scapular pain?? t/c EMG as outpt (2) HTN (hypertension): continue lisinopril and hctz (3) HLD (hyperlipidemia): admission physicain continued zocor 40, if stroke will need high potency statin panel on 02/19 was WNL with HDL 46 and LDL 53, will not repeat (4) Diabetes: 70/30 as at home with SSI PRN A1c 02/19 7.0, holding home metformin (5) DVT prophylaxis: SCDs (6) Macular degeneration: Results & Data Vital Signs (Past 12 Hours) Vital Signs Temp Pulse Pulse Resp BP Pulse Ox 03/24/19 07:58 36.5 C 62 20 150/72 H 95 03/24/19 07:15 64 03/24/19 04:00 36.5 C 58 L 16 179/88 H 96 03/23/19 23:13 36.4 C L 52 L 22 173/83 H 96 03/23/19 22:41 178/84 H
[2019-03-24] MEDS ORDERED: ASPIRIN 81 MG ECTAB PO SCH (09:00)
[2019-03-24] MEDS ORDERED: ATORVASTATIN 40 MG TAB PO SCH (09:00)
[2019-03-24] MEDS ORDERED: TRIAMTERENE/HCTZ 37.5/25MG CAP PO SCH (09:00)
--- NOTE | 2019-03-24 19:35 | Discharge Summary ---
Date of Service March 24, 2019 Admission HPI Per Admitting Provider 78 y/o M c/o R hand weakness. Pt states that he noted R shoulder pain around his shoulder blade on night. He saw his chiropractor on Saturday AM and was adjusted. He states that the pain was not gone, but it was better. He noted decreased R silicator strength on Saturday morning while he was trying to draw up his insulin. This has increased over the last few days and this AM he also noted some R UE swelling that has since resolved. His L hand has been WNL. This has never happened to him prior. He has no issues with LE strength. No lightheadedness/dizziness, vision changes, confusion. He states that his BS have been elevated the last few days as well. He is usually <120 in the AM and was 173 today. He has had several HS readings in the 200s. His A1c on 02/19 was 7.0. He noted a hypoglycemic episode in the 60s x1. He saw his chiropractor this AM but was directed to the ED due to the silicator issues. Pt notes a R 5th trigger finger. He states that if he pushes on the nodule noted on on his palm, it will cause pain to the shoulder blade. Pt has no other concerns. Pt denies fever, SOB, chest pain, abd pain, n/v/c/d, LE pain. He does note some L LE swelling that is minimal, but just slightly larger than the R. Pt is concerned that he will not be able to tolerate MRI and is requesting something for anxiety related to imaging. Principal Diagnosis stroke ruled out right arm radiculopathy Discharge Exam pt has some right arm weakness with weak tricep Constitutional well developed and average body habitus Eyes no conjunctival abnormality and no scleral abnormality Neck normal visual inspection and trachea midline Respiratory normal respiratory effort; no respiratory distress Auscultation: lungs clear to auscultation bilaterally Cardiovascular RRR, no murmur, no edema Gastrointestinal (Abdomen) normal bowel sounds, soft, nontender, no hepatosplenomegaly Musculoskeletal no cyanosis or clubbing, extremities motor strength 5/5 Discharge Data Allergies Allergy/AdvReac Type Severity Reaction Status Date / Time ibuprofen AdvReac Unknown "BLEEDS IN Verified 03/23/19 11:46 STOMACH IF TAKES TOO MUCH" Consultations 03/23/19 12:40 ED Decision to Admit Stat 03/23/19 16:16 Consult Case Management - Discharge Planning Routine Ordered Studies 03/23/19 10:57 CT head/brain wo con Stat 03/23/19 16:16 MR angio head wo con Urgent MR angio neck wo/w con Routine MR brain wo con Routine Hospital Course (1) RUE weakness: CVA ruled out CT head neg for acute MRI negative/MRA negative, ECHO pending at time of discharge but with negative imaging will have little to add TSH, B12 normal CMP, PRP WNL t/c Lyme testing if neg workup ?? nerve compression related to MSK issue given R scapular pain?? t/c EMG as outpt (2) HTN (hypertension): continue lisinopril and hctz (3) HLD (hyperlipidemia): admission physicain continued zocor 40, if stroke will need high potency statin panel on 02/19 was WNL with HDL 46 and LDL 53, (4) Diabetes: 70/30 as at home with SSI PRN A1c 02/19 7.0, holding home metformin (5) DVT prophylaxis: SCDs (6) Macular degeneration: Total Time Total Time Spent Total Time Spent (In Minutes): greater than 30 minutes were required to prepare discharge Discharge Plan Discharge Items Patient Disposition: Home - Self-Care Reason For Visit: STROKE LIKE SYMPTOMS Discharge Diagnosis: right arm weakness Discharge Goals: Decrease discomfort and Diagnostic testing Activity: Resume your previous activity Non-emergency contact: Primary Care Provider Call non-emergency contact if: you have any medication questions Follow-up/Referrals: Emerson Ocampo MD [Primary Care Provider] - Diet: Carb Consistent or DM2 Addtl Provider Instructions: the ultrasound test for your heart has not been officially read, however all the testing related to stroke has been negative for any stroke or changes to the blood flow to your brain, please make a follow up appointment with Dr Radames Claudio and discuss your arm weakness further, he may consider doing testing on the nerves that exit from your neck(cervical spine) to see if you have a pinched nerve or also consider lyme disease testing Prescriptions: New aspirin [Ecotrin Low Strength] 81 mg Tablet,Delayed Release (Dr/Ec) 81 mg PO QAM Qty: 90 RF: 2 Continued metformin 500 mg Tablet 500 mg PO BID RF: 0 triamterene-hydrochlorothiazid 37.5-25 mg Capsule 1 cap PO QAM RF: 0 simvastatin 40 mg Tablet 40 mg PO PM RF: 0 lisinopril 40 mg Tablet 20 mg PO BID RF: 0 Novolin 70/30 U-100 Insulin 100 unit/mL (70-30) Suspension 80 units SUBCUT QAM RF: 0 Novolin 70/30 U-100 Insulin 100 unit/mL (70-30) Suspension 45 units SUBCUT QPM RF: 0 fenofibrate 54 mg Tablet 54 mg PO QPM RF: 0 PreserVision AREDS-2 362-529-04-1 [id number] Capsule 1 tab PO BID RF: 0 latanoprost (PF) 0.005 % Drops 1 drp OPB QPM RF: 0 Stand-Alone Forms: [facility] Discharge Orders: Discharge Order (Routine); Ordered 03/24/19 Ordered By: Lei Moss Admission Data Admit Date/Time: 03/23/19 15:15 Attending Provider: Lei Moss Admit Provider: Alexandra Cadet Primary Care Provider: Emerson Ocampo Other Providers: Alexandra Cadet Service: Telemetry Other Interventions: Discharge Summary Assessment (RN) Last Done: 03/24/19 17:18 Pending Studies at Discharge: Yes Studies:: echocardiogram DC Date/Time DO NOT enter until pt leaves facility: 03/24/19 18:16
== END 2019-03-24 18:16 | disposition home or self-care (01) ==
LOC: 2N 10:09 → ED 10:09 → SUATTDRO 15:15 → 2N 15:40

== ENCOUNTER 2025-08-21 22:42 | Inpatient (IN) ==
--- NOTE | 2025-08-21 23:09 | Emergency Department Note ---
Impression & Plan Elevated troponin, Acute chest pain admit to the [facility] ED Provider Note NAME: NANCY MANN AGE: 85 SEX: Male INFORMANT: Patient ED PROVIDER(S): Nelida Caballero DO CHIEF COMPLAINT: fall PLAN: Disposition: admit to the [facility] MEDICAL DECISION MAKING: This is an 85-year-old male patient who presents to the emergency department after falling backwards earlier today with a reclining chair falling onto him. 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 He fell backwards in slow motion onto the floor holding onto the back of a reclining chair. The chair then fell on top of him slowly. He pushed the chair off of him and it slowly had to get himself. Since that time, he had some discomfort in his chest and in his anterior neck. The neck pain seems to have subsided but the chest pain has persisted. EKG shows evidence of T wave inversions laterally but this is unchanged from previous EKGs. Patient does have an elevated troponin to 31.6. CT scan of the chest was unremarkable. Patient's chest pain is questionably reproducible with palpation to the anterior left chest wall. I have discussed the case with the [facility] Hospitalist and they will evaluate for further inpatient care. Care/management discussed with: optical laboratory manager and [facility] Hospitalist. Triage Nursing notes: reviewed and agree With them. Vital Signs: reviewed and remarkable for hypertension Additional History obtained from: the patient's sons who are at the bedside Chronic Medical/Social Conditions affecting care: Parkinson's-like illness differential diagnosis:Cardiac ischemia, vomiting chest wall strain, pericardial injury Diagnostics, independently interpreted by me: ECG: Sinus bradycardia with T wave inversion in the lateral leads. This was compared to previous EKG and was unchanged. Cardiac Monitoring: Normal sinus rhythm at a rate of 62 Imaging studies: CT scan of the cervical spine: As per [facility] CT scan of the chest: As per [facility] HPI: 85 year old Male arrives for evaluation of and chest discomfort and neck discomfort following a fall. presents to the emergency department after falling backwards earlier today with a reclining chair falling onto him. 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 He fell backwards in slow motion onto the floor holding onto the back of a reclining chair. The chair then fell on top of him slowly. He pushed the chair off of him and it slowly had to get himself. Since that time, he had some discomfort in his chest and in his anterior neck. The neck pain seems to have subsided but the chest pain has persisted. PAST MEDICAL HISTORY: See Below, PAST SURGICAL HISTORY: See Below, SOCIAL HISTORY: See Below, HOME MEDICATIONS: see list ALLERGIES: see list VITALS: See Below PHYSICAL EXAMINATION: Primary Survey Airway: Intact Breathing: Normal, breath sounds equal bilaterally Circulation: Skin warm, distal pulses 2+, capillary refill less than 2 seconds Disability Pupils: Equal and reactive to light, 3mm, brisk GCS: 15, E = 6 V=5 M= 4 Motor Function: Moves all extremities. Sensory: No deficits Secondary Survey GEN: Well developed and well-nourished HEAD: Normal cephalic atraumatic EYES: Pupils round reactive to light, conjunctiva clear, extraocular movements intact, no raccoons eyes ENT: No fluid in external acoustic canals, no hemotympanum, no munoz's sign, nares patent, oropharynx clear NECK: No JVD, midline trachea, no cervical spine tenderness HEART: Regular rate and rhythm LUNGS: Clear to auscultation bilaterally. CHEST: Chest wall non-tender, no bruising/deformity ABD: No Busch-Matthews's or [place]'s sign, soft, non-tender, no rebound or guarding PELVIS: Stable to rock BACK: No step offs or deformities, T-L spine non tender EXT: 2+ global pulses, moving all extremities well, +5/5 muscle strength globally NEURO: CNII-XII grossly intact, no sensory deficits Emergency department course: The patient was evaluated in room A-10. A complete history and physical was performed. Laboratory studies were drawn as above. Order was placed for continuous cardiac monitoring. The patient was in a normal sinus rhythm at a rate of 62. Twelve-lead EKG was obtained. CT scan of the chest was obtained and CT scan of the cervical spine was obtained. I reviewed the laboratory and CT findings with the patient and his family. I discussed the case with the [facility] Hospitalist and they will evaluate for further inpatient care Past Med/Surg History Problem List (Updated 08/22/25 @ 05:17 by Nelida Caballero DO) Acute chest pain (Acute) Elevated troponin (Acute) Fall Parkinsons disease Left knee DJD Action tremor Parkinsonism Peripheral neuropathy Diabetes mellitus, type 2 (Chronic) Tremor of both hands Macular degeneration DVT prophylaxis RUE weakness (Acute) Weakness (Acute) Encounter for pre-operative examination Diabetes (Chronic) HTN (hypertension) (Chronic) HLD (hyperlipidemia) (Chronic) Benign positional vertigo (Acute) Medical History DDD (degenerative disc disease), lumbar Glaucoma Wet senile macular degeneration Chronic back pain Hypertension Hyperlipidemia Surgical History History of cataract surgery History of tonsillectomy Family History Son Family history of diabetes mellitus Father , 48 y/o s/p LA Myocardial infarction Brother , 48 y/o s/p LA, multiple CVA prior Stroke Myocardial infarction Social History Smoking Status: Never smoker Second Hand Exposure: No; Do You Dip or Chew Tobacco: No; Hx Alcohol Use: No Hx Substance Use: No Preferred Language: Taiwanese Communication Ability: Effective Visual Impairment: Partially Limited Pharmacist In Charge Required: No Beliefs That Will Affect Care: None marital status: / Current Living Situation: Alone Current Living Situation Comment: lives at home alone Feels Safe at Home: Yes Safety Concerns: Feels Safe At This Time Assistive Devices: Glasses and Walker Assistive Devices Comment: as needed Allergies Allergies Allergy/AdvReac Type Severity Reaction Status Date / Time ibuprofen AdvReac Unknown "BLEEDS IN Verified 07/01/25 08:32 STOMACH IF TAKES TOO MUCH" Home Meds Home Medications Medication Instructions Recorded Confirmed carbidopa 25 mg-levodopa 100 mg 1.5 tab PO QID 08/22/25 08/22/25 tablet dulaglutide 1.5 mg/0.5 mL 1.5 mg subcut WK 08/22/25 08/22/25 subcutaneous pen injector (Trulicity) fenofibrate 54 mg tablet 54 mg PO DAILY 08/22/25 08/22/25 insulin human U-100 NPH-regulr 72 unit subcut UD 08/22/25 08/22/25 70-30 mix 100 unit/mL subcutaneous susp (Novolin 70/30 U-100 Insulin) latanoprost 0.005 % eye drops 1 drp OPB HS 08/22/25 08/22/25 lisinopril 20 mg tablet 20 mg PO BID 08/22/25 08/22/25 metformin 500 mg tablet 500 mg PO BID 08/22/25 08/22/25 simvastatin 40 mg tablet 40 mg PO DAILY 08/22/25 08/22/25 triamterene 37.5 1 tab PO DAILY 08/22/25 08/22/25 mg-hydrochlorothiazide 25 mg tablet vit C 250 mg-vit E 90 mg-zinc 40 1 tab PO BID 08/22/25 08/22/25 mg-copper 1 [id number] capsule (PreserVision AREDS-2) Results & Data (ED) Vital Signs Vital Signs - 24 hr 08/21/25 22:44 08/21/25 22:45 08/21/25 23:05 Temperature 36.3 C L Temperature Source Oral Pulse Rate 62 67 Pulse Rate [Right Finger] 67 Pulse Rate from SpO2 Sensor Respiratory Rate 18 16 18 Respiratory Effort / Characteristics Non-Labored Spontaneous Respiratory Depth Normal Normal Blood Pressure 163/78 H Blood Pressure [Left Arm] 169/84 H Blood Pressure Mean 106 Blood Pressure Mean [Left Arm] 112 Pulse Oximetry 97 97 98 Oxygen Delivery Method Room Air Room Air Room Air Sepsis Recent Fever Within 48 Hours No Sepsis New/Unexplained Change in Mental Status No Sepsis Action Taken by Nursing No Action Required 08/21/25 23:06 08/21/25 23:08 08/21/25 23:08 Temperature Temperature Source Pulse Rate 67 54 L Pulse Rate [Right Finger] Pulse Rate from SpO2 Sensor Respiratory Rate 20 Respiratory Effort / Characteristics Respiratory Depth Blood Pressure 169/84 H Blood Pressure [Left Arm] Blood Pressure Mean 122 Blood Pressure Mean [Left Arm] Pulse Oximetry Oxygen Delivery Method Sepsis Recent Fever Within 48 Hours Sepsis New/Unexplained Change in Mental Status Sepsis Action Taken by Nursing 08/21/25 23:08 08/21/25 23:08 08/21/25 23:08 Temperature Temperature Source Pulse Rate Pulse Rate [Right Finger] Pulse Rate from SpO2 Sensor Respiratory Rate Respiratory Effort / Characteristics Respiratory Depth Blood Pressure 169/84 H 169/84 H 169/84 H Blood Pressure [Left Arm] Blood Pressure Mean 122 122 122 Blood Pressure Mean [Left Arm] Pulse Oximetry Oxygen Delivery Method Sepsis Recent Fever Within 48 Hours Sepsis New/Unexplained Change in Mental Status Sepsis Action Taken by Nursing 08/21/25 23:08 08/21/25 23:12 08/21/25 23:15 Temperature Temperature Source Pulse Rate 62 Pulse Rate [Right Finger] Pulse Rate from SpO2 Sensor 62 Respiratory Rate 19 Respiratory Effort / Characteristics Respiratory Depth Blood Pressure 169/84 H 187/89 H Blood Pressure [Left Arm] Blood Pressure Mean 122 125 Blood Pressure Mean [Left Arm] Pulse Oximetry 97 Oxygen Delivery Method Sepsis Recent Fever Within 48 Hours Sepsis New/Unexplained Change in Mental Status Sepsis Action Taken by Nursing 08/21/25 23:15 08/21/25 23:15 08/21/25 23:15 Temperature Temperature Source Pulse Rate Pulse Rate [Right Finger] Pulse Rate from SpO2 Sensor Respiratory Rate Respiratory Effort / Characteristics Respiratory Depth Blood Pressure 187/89 H 187/89 H 187/89 H Blood Pressure [Left Arm] Blood Pressure Mean 125 125 125 Blood Pressure Mean [Left Arm] Pulse Oximetry Oxygen Delivery Method Sepsis Recent Fever Within 48 Hours Sepsis New/Unexplained Change in Mental Status Sepsis Action Taken by Nursing 08/21/25 23:15 08/21/25 23:21 08/21/25 23:39 Temperature Temperature Source Pulse Rate 51 L 63 71 Pulse Rate [Right Finger] Pulse Rate from SpO2 Sensor 55 L 63 Respiratory Rate 12 16 19 Respiratory Effort / Characteristics Respiratory Depth Blood Pressure Blood Pressure [Left Arm] Blood Pressure Mean Blood Pressure Mean [Left Arm] Pulse Oximetry 97 98 Oxygen Delivery Method Sepsis Recent Fever Within 48 Hours Sepsis New/Unexplained Change in Mental Status Sepsis Action Taken by Nursing 08/21/25 23:42 08/21/25 23:45 08/21/25 23:45 Temperature Temperature Source Pulse Rate 71 70 Pulse Rate [Right Finger] Pulse Rate from SpO2 Sensor Respiratory Rate 15 16 Respiratory Effort / Characteristics Respiratory Depth Blood Pressure 174/87 H Blood Pressure [Left Arm] Blood Pressure Mean 104 Blood Pressure Mean [Left Arm] Pulse Oximetry Oxygen Delivery Method Sepsis Recent Fever Within 48 Hours Sepsis New/Unexplained Change in Mental Status Sepsis Action Taken by Nursing 08/21/25 23:45 08/21/25 23:45 08/21/25 23:45 Temperature Temperature Source Pulse Rate Pulse Rate [Right Finger] Pulse Rate from SpO2 Sensor Respiratory Rate Respiratory Effort / Characteristics Respiratory Depth Blood Pressure 174/87 H 174/87 H 174/87 H Blood Pressure [Left Arm] Blood Pressure Mean 104 104 104 Blood Pressure Mean [Left Arm] Pulse Oximetry Oxygen Delivery Method Sepsis Recent Fever Within 48 Hours Sepsis New/Unexplained Change in Mental Status Sepsis Action Taken by Nursing 08/21/25 23:45 08/21/25 23:51 08/22/25 00:00 Temperature Temperature Source Pulse Rate 73 68 Pulse Rate [Right Finger] Pulse Rate from SpO2 Sensor Respiratory Rate 16 17 Respiratory Effort / Characteristics Respiratory Depth Blood Pressure 174/87 H Blood Pressure [Left Arm] Blood Pressure Mean 104 Blood Pressure Mean [Left Arm] Pulse Oximetry Oxygen Delivery Method Sepsis Recent Fever Within 48 Hours Sepsis New/Unexplained Change in Mental Status Sepsis Action Taken by Nursing 08/22/25 00:00 08/22/25 00:00 08/22/25 00:00 Temperature Temperature Source Pulse Rate Pulse Rate [Right Finger] Pulse Rate from SpO2 Sensor Respiratory Rate Respiratory Effort / Characteristics Respiratory Depth Blood Pressure 198/99 H 198/99 H 198/99 H Blood Pressure [Left Arm] Blood Pressure Mean 129 129 129 Blood Pressure Mean [Left Arm] Pulse Oximetry Oxygen Delivery Method Sepsis Recent Fever Within 48 Hours Sepsis New/Unexplained Change in Mental Status Sepsis Action Taken by Nursing 08/22/25 00:00 08/22/25 00:00 08/22/25 00:12 Temperature Temperature Source Pulse Rate 70 Pulse Rate [Right Finger] Pulse Rate from SpO2 Sensor Respiratory Rate 17 Respiratory Effort / Characteristics Respiratory Depth Blood Pressure 198/99 H 198/99 H Blood Pressure [Left Arm] Blood Pressure Mean 129 129 Blood Pressure Mean [Left Arm] Pulse Oximetry Oxygen Delivery Method Sepsis Recent Fever Within 48 Hours Sepsis New/Unexplained Change in Mental Status Sepsis Action Taken by Nursing 08/22/25 00:21 08/22/25 00:30 08/22/25 00:30 Temperature Temperature Source Pulse Rate 58 L 64 Pulse Rate [Right Finger] Pulse Rate from SpO2 Sensor 55 L 64 Respiratory Rate 24 20 Respiratory Effort / Characteristics Respiratory Depth Blood Pressure 207/136 H Blood Pressure [Left Arm] Blood Pressure Mean 143 Blood Pressure Mean [Left Arm] Pulse Oximetry 98 99 Oxygen Delivery Method Sepsis Recent Fever Within 48 Hours Sepsis New/Unexplained Change in Mental Status Sepsis Action Taken by Nursing 08/22/25 00:30 08/22/25 00:30 08/22/25 00:30 Temperature Temperature Source Pulse Rate Pulse Rate [Right Finger] Pulse Rate from SpO2 Sensor Respiratory Rate Respiratory Effort / Characteristics Respiratory Depth Blood Pressure 207/136 H 207/136 H 207/136 H Blood Pressure [Left Arm] Blood Pressure Mean 143 143 143 Blood Pressure Mean [Left Arm] Pulse Oximetry Oxygen Delivery Method Sepsis Recent Fever Within 48 Hours Sepsis New/Unexplained Change in Mental Status Sepsis Action Taken by Nursing 08/22/25 00:30 08/22/25 00:42 08/22/25 00:45 Temperature Temperature Source Pulse Rate 69 Pulse Rate [Right Finger] Pulse Rate from SpO2 Sensor 67 Respiratory Rate 18 Respiratory Effort / Characteristics Respiratory Depth Blood Pressure 207/136 H 206/111 H Blood Pressure [Left Arm] Blood Pressure Mean 143 162 Blood Pressure Mean [Left Arm] Pulse Oximetry 99 Oxygen Delivery Method Sepsis Recent Fever Within 48 Hours Sepsis New/Unexplained Change in Mental Status Sepsis Action Taken by Nursing 08/22/25 00:45 08/22/25 00:45 08/22/25 00:45 Temperature Temperature Source Pulse Rate Pulse Rate [Right Finger] Pulse Rate from SpO2 Sensor Respiratory Rate Respiratory Effort / Characteristics Respiratory Depth Blood Pressure 206/111 H 206/111 H 206/111 H Blood Pressure [Left Arm] Blood Pressure Mean 162 162 162 Blood Pressure Mean [Left Arm] Pulse Oximetry Oxygen Delivery Method Sepsis Recent Fever Within 48 Hours Sepsis New/Unexplained Change in Mental Status Sepsis Action Taken by Nursing 08/22/25 00:45 08/22/25 00:45 08/22/25 00:51 Temperature Temperature Source Pulse Rate 68 67 Pulse Rate [Right Finger] Pulse Rate from SpO2 Sensor 68 68 Respiratory Rate 18 15 Respiratory Effort / Characteristics Respiratory Depth Blood Pressure 206/111 H Blood Pressure [Left Arm] Blood Pressure Mean 162 Blood Pressure Mean [Left Arm] Pulse Oximetry 98 99 Oxygen Delivery Method Sepsis Recent Fever Within 48 Hours Sepsis New/Unexplained Change in Mental Status Sepsis Action Taken by Nursing 08/22/25 01:00 08/22/25 01:00 08/22/25 01:00 Temperature Temperature Source Pulse Rate Pulse Rate [Right Finger] Pulse Rate from SpO2 Sensor Respiratory Rate Respiratory Effort / Characteristics Respiratory Depth Blood Pressure 209/111 H 209/111 H 209/111 H Blood Pressure [Left Arm] Blood Pressure Mean 132 132 132 Blood Pressure Mean [Left Arm] Pulse Oximetry Oxygen Delivery Method Sepsis Recent Fever Within 48 Hours Sepsis New/Unexplained Change in Mental Status Sepsis Action Taken by Nursing 08/22/25 01:00 08/22/25 01:00 08/22/25 01:03 Temperature Temperature Source Pulse Rate 71 67 Pulse Rate [Right Finger] Pulse Rate from SpO2 Sensor 71 67 Respiratory Rate 17 25 H Respiratory Effort / Characteristics Respiratory Depth Blood Pressure 209/111 H Blood Pressure [Left Arm] Blood Pressure Mean 132 Blood Pressure Mean [Left Arm] Pulse Oximetry 98 99 Oxygen Delivery Method Sepsis Recent Fever Within 48 Hours Sepsis New/Unexplained Change in Mental Status Sepsis Action Taken by Nursing 08/22/25 01:04 08/22/25 01:04 08/22/25 01:04 Temperature Temperature Source Pulse Rate Pulse Rate [Right Finger] Pulse Rate from SpO2 Sensor Respiratory Rate Respiratory Effort / Characteristics Respiratory Depth Blood Pressure 176/94 H 176/94 H 176/94 H Blood Pressure [Left Arm] Blood Pressure Mean 139 139 139 Blood Pressure Mean [Left Arm] Pulse Oximetry Oxygen Delivery Method Sepsis Recent Fever Within 48 Hours Sepsis New/Unexplained Change in Mental Status Sepsis Action Taken by Nursing 08/22/25 01:04 08/22/25 01:04 08/22/25 01:12 Temperature Temperature Source Pulse Rate 67 Pulse Rate [Right Finger] Pulse Rate from SpO2 Sensor 65 Respiratory Rate 22 Respiratory Effort / Characteristics Respiratory Depth Blood Pressure 176/94 H 176/94 H Blood Pressure [Left Arm] Blood Pressure Mean 139 139 Blood Pressure Mean [Left Arm] Pulse Oximetry 98 Oxygen Delivery Method Sepsis Recent Fever Within 48 Hours Sepsis New/Unexplained Change in Mental Status Sepsis Action Taken by Nursing 08/22/25 01:15 08/22/25 01:15 08/22/25 01:15 Temperature Temperature Source Pulse Rate Pulse Rate [Right Finger] Pulse Rate from SpO2 Sensor Respiratory Rate Respiratory Effort / Characteristics Respiratory Depth Blood Pressure 204/102 H 204/102 H 204/102 H Blood Pressure [Left Arm] Blood Pressure Mean 126 126 126 Blood Pressure Mean [Left Arm] Pulse Oximetry Oxygen Delivery Method Sepsis Recent Fever Within 48 Hours Sepsis New/Unexplained Change in Mental Status Sepsis Action Taken by Nursing 08/22/25 01:15 08/22/25 01:15 08/22/25 01:15 Temperature Temperature Source Pulse Rate 67 Pulse Rate [Right Finger] Pulse Rate from SpO2 Sensor 68 Respiratory Rate 18 Respiratory Effort / Characteristics Respiratory Depth Blood Pressure 204/102 H 204/102 H Blood Pressure [Left Arm] Blood Pressure Mean 126 126 Blood Pressure Mean [Left Arm] Pulse Oximetry 98 Oxygen Delivery Method Sepsis Recent Fever Within 48 Hours Sepsis New/Unexplained Change in Mental Status Sepsis Action Taken by Nursing 08/22/25 01:21 08/22/25 01:30 08/22/25 01:30 Temperature Temperature Source Pulse Rate 68 Pulse Rate [Right Finger] Pulse Rate from SpO2 Sensor 69 Respiratory Rate 20 Respiratory Effort / Characteristics Respiratory Depth Blood Pressure 195/102 H 195/102 H Blood Pressure [Left Arm] Blood Pressure Mean 159 159 Blood Pressure Mean [Left Arm] Pulse Oximetry 98 Oxygen Delivery Method Sepsis Recent Fever Within 48 Hours Sepsis New/Unexplained Change in Mental Status Sepsis Action Taken by Nursing 08/22/25 01:30 08/22/25 01:30 08/22/25 01:30 Temperature Temperature Source Pulse Rate Pulse Rate [Right Finger] Pulse Rate from SpO2 Sensor Respiratory Rate Respiratory Effort / Characteristics Respiratory Depth Blood Pressure 195/102 H 195/102 H 195/102 H Blood Pressure [Left Arm] Blood Pressure Mean 159 159 159 Blood Pressure Mean [Left Arm] Pulse Oximetry Oxygen Delivery Method Sepsis Recent Fever Within 48 Hours Sepsis New/Unexplained Change in Mental Status Sepsis Action Taken by Nursing 08/22/25 01:30 08/22/25 01:42 08/22/25 01:45 Temperature Temperature Source Pulse Rate 70 66 Pulse Rate [Right Finger] Pulse Rate from SpO2 Sensor 68 64 Respiratory Rate 23 19 Respiratory Effort / Characteristics Respiratory Depth Blood Pressure 194/101 H Blood Pressure [Left Arm] Blood Pressure Mean 119 Blood Pressure Mean [Left Arm] Pulse Oximetry 98 99 Oxygen Delivery Method Sepsis Recent Fever Within 48 Hours Sepsis New/Unexplained Change in Mental Status Sepsis Action Taken by Nursing 08/22/25 01:45 08/22/25 01:45 08/22/25 01:45 Temperature Temperature Source Pulse Rate Pulse Rate [Right Finger] Pulse Rate from SpO2 Sensor Respiratory Rate Respiratory Effort / Characteristics Respiratory Depth Blood Pressure 194/101 H 194/101 H 194/101 H Blood Pressure [Left Arm] Blood Pressure Mean 119 119 119 Blood Pressure Mean [Left Arm] Pulse Oximetry Oxygen Delivery Method Sepsis Recent Fever Within 48 Hours Sepsis New/Unexplained Change in Mental Status Sepsis Action Taken by Nursing 08/22/25 01:45 08/22/25 01:45 08/22/25 01:51 Temperature Temperature Source Pulse Rate 65 71 Pulse Rate [Right Finger] Pulse Rate from SpO2 Sensor 66 71 Respiratory Rate 28 H 18 Respiratory Effort / Characteristics Respiratory Depth Blood Pressure 194/101 H Blood Pressure [Left Arm] Blood Pressure Mean 119 Blood Pressure Mean [Left Arm] Pulse Oximetry 99 99 Oxygen Delivery Method Sepsis Recent Fever Within 48 Hours Sepsis New/Unexplained Change in Mental Status Sepsis Action Taken by Nursing 08/22/25 02:00 08/22/25 02:00 08/22/25 02:01 Temperature Temperature Source Pulse Rate 72 Pulse Rate [Right Finger] 71 Pulse Rate from SpO2 Sensor 72 Respiratory Rate 18 15 Respiratory Effort / Characteristics Respiratory Depth Blood Pressure 196/97 H Blood Pressure [Left Arm] 196/89 H Blood Pressure Mean 156 Blood Pressure Mean [Left Arm] 124 Pulse Oximetry 97 98 Oxygen Delivery Method Room Air Sepsis Recent Fever Within 48 Hours Sepsis New/Unexplained Change in Mental Status Sepsis Action Taken by Nursing 08/22/25 02:01 08/22/25 02:01 08/22/25 02:01 Temperature Temperature Source Pulse Rate Pulse Rate [Right Finger] Pulse Rate from SpO2 Sensor Respiratory Rate Respiratory Effort / Characteristics Respiratory Depth Blood Pressure 196/97 H 196/97 H 196/97 H Blood Pressure [Left Arm] Blood Pressure Mean 156 156 156 Blood Pressure Mean [Left Arm] Pulse Oximetry Oxygen Delivery Method Sepsis Recent Fever Within 48 Hours Sepsis New/Unexplained Change in Mental Status Sepsis Action Taken by Nursing 08/22/25 02:01 08/22/25 02:12 Temperature Temperature Source Pulse Rate 67 Pulse Rate [Right Finger] Pulse Rate from SpO2 Sensor 69 Respiratory Rate 15 Respiratory Effort / Characteristics Respiratory Depth Blood Pressure 196/97 H Blood Pressure [Left Arm] Blood Pressure Mean 156 Blood Pressure Mean [Left Arm] Pulse Oximetry 97 Oxygen Delivery Method Sepsis Recent Fever Within 48 Hours Sepsis New/Unexplained Change in Mental Status Sepsis Action Taken by Nursing Laboratory Data 08/21/25 23:05 08/21/25 23:05 Lab Results 08/21/25 08/21/25 08/22/25 Range/Units 23:05 23:15 00:04 WBC 10.93 H (4.8-10.8) K/ul RBC 4.65 L (4.70-6.10) M/uL Hgb 13.5 L (14.0-18.0) g/dl POC Hgb 13.6 L (14.0-18.0) g/dl Hct 41.2 L (42.0-52.0) % POC Hct 40 L (42-52) % MCV 88.6 (80.0-100.0) fL MCH 29.0 (25.0-34.0) pg MCHC 32.8 (32.0-36.0) g/dL RDW Std Deviation 43.4 (36.4-46.3) fL RDW Coeff of Summer 13.2 (11.5-14.5) % Plt Count 249 (130-400) K/uL MPV 10.5 (9.4-12.4) fL Immature Gran % (Auto) 0.3 % Neut % (Auto) 53.6 % Lymph % (Auto) 35.0 % [place] % (Auto) 9.0 % Eos % (Auto) 1.6 % Baso % (Auto) 0.5 % Neut # (Auto) 5.85 (1.40-6.50) K/uL Lymph # (Auto) 3.83 H (1.20-3.40) K/uL [place] # (Auto) 0.98 H (0.11-0.59) K/uL Eos # (Auto) 0.18 (0.00-0.50) K/uL Baso # (Auto) 0.06 (0.00-0.20) K/uL Immature Gran # (Auto) 0.03 (0.01-0.20) K/uL PT Cancelled 10.3 INR Cancelled 1.0 APTT Cancelled 25 PTT Ratio Cancelled 0.9 POC Sodium 142 (135-144) mmol/L Sodium 141 (136-145) mmol/L POC Potassium 3.7 (3.3-5.0) mmol/L Potassium 3.7 (3.5-5.1) mmol/L POC Chloride 104 (101-112) mmol/L Chloride 107 (98-107) mmol/L Carbon Dioxide 26 (21-32) mmol/L POC Total CO2 24 (24-31) mmol/L Anion Gap 8 (3-11) POC Anion Gap 18.0 (16-25) mmol/L POC BUN 20 H (7-18) mg/dl BUN 20 (6-23) mg/dl Creatinine 1.41 H (0.6-1.4) mg/dl POC Creatinine 1.5 H (0.6-1.3) mg/dl Est Cr Clr Drug Dosing 43.3 ml/min eGFR 48.84 BUN/Creatinine Ratio 14.2 (10-20) Glucose 114 H (70-99(Fasting)) mg/dl POC Glucose (other) 112 H (70-99) mg/dl Calcium 9.4 (8.6-10.3) mg/dl POC Ioniz Calcium Rober 1.23 (1.12-1.32) mmol/l Magnesium 2.0 (1.7-2.4) mg/dl Total Bilirubin 0.4 (0.2-1.0) mg/dl AST 14 (13-39) U/L ALT 6 L (7-52) U/L Alkaline Phosphatase 77 (34-104) U/L Total Creatine Kinase 96 (30-223) U/L Troponin I High Sens 31.6 H (0-20) pg/ml Total Protein 7.1 (6.0-8.3) gm/dl Albumin 4.0 (3.4-5.0) gm/dl Globulin 3.1 (2.5-4.0) gm/dl Albumin/Globulin Ratio 1.3 (0.9-2) Lipase 57 (11-82) U/L Urine Color Urine Appearance (Clear) Urine pH (4.5-7.5) Ur Specific [place] (1.000-1.030) Urine Protein (Negative) Urine Glucose (UA) (Negative) Urine Ketones (Negative) Urine Blood (Negative) Urine Nitrite (Negative) Urine Bilirubin (Negative) Urine Urobilinogen (Negative) Ur Leukocyte Esterase (Negative) Urine WBC (Auto) (0-5) /hpf Urine RBC (Auto) (0-2) /hpf U Hyaline Cast (Auto) (0-2) /lpf U Epithel Cells (Auto) (0-2) /hpf Urine Bacteria (Auto) (None Seen) Urine Comment 08/22/25 08/22/25 Range/Units 00:20 01:41 WBC (4.8-10.8) K/ul RBC (4.70-6.10) M/uL Hgb (14.0-18.0) g/dl POC Hgb (14.0-18.0) g/dl Hct (42.0-52.0) % POC Hct (42-52) % MCV (80.0-100.0) fL MCH (25.0-34.0) pg MCHC (32.0-36.0) g/dL RDW Std Deviation (36.4-46.3) fL RDW Coeff of Summer (11.5-14.5) % Plt Count (130-400) K/uL MPV (9.4-12.4) fL Immature Gran % (Auto) % Neut % (Auto) % Lymph % (Auto) % [place] % (Auto) % Eos % (Auto) % Baso % (Auto) % Neut # (Auto) (1.40-6.50) K/uL Lymph # (Auto) (1.20-3.40) K/uL [place] # (Auto) (0.11-0.59) K/uL Eos # (Auto) (0.00-0.50) K/uL Baso # (Auto) (0.00-0.20) K/uL Immature Gran # (Auto) (0.01-0.20) K/uL PT INR APTT PTT Ratio POC Sodium (135-144) mmol/L Sodium (136-145) mmol/L POC Potassium (3.3-5.0) mmol/L Potassium (3.5-5.1) mmol/L POC Chloride (101-112) mmol/L Chloride (98-107) mmol/L Carbon Dioxide (21-32) mmol/L POC Total CO2 (24-31) mmol/L Anion Gap (3-11) POC Anion Gap (16-25) mmol/L POC BUN (7-18) mg/dl BUN (6-23) mg/dl Creatinine (0.6-1.4) mg/dl POC Creatinine (0.6-1.3) mg/dl Est Cr Clr Drug Dosing ml/min eGFR BUN/Creatinine Ratio (10-20) Glucose (70-99(Fasting)) mg/dl POC Glucose (other) (70-99) mg/dl Calcium (8.6-10.3) mg/dl POC Ioniz Calcium [place] (1.12-1.32) mmol/l Magnesium (1.7-2.4) mg/dl Total Bilirubin (0.2-1.0) mg/dl AST (13-39) U/L ALT (7-52) U/L Alkaline Phosphatase (34-104) U/L Total Creatine Kinase (30-223) U/L Troponin I High Sens 28.4 H (0-20) pg/ml Total Protein (6.0-8.3) gm/dl Albumin (3.4-5.0) gm/dl Globulin (2.5-4.0) gm/dl Albumin/Globulin Ratio (0.9-2) Lipase (11-82) U/L Urine Color Yellow Urine Appearance Clear (Clear) Urine pH 7.0 (4.5-7.5) Ur Specific [place] 1.034 H (1.000-1.030) Urine Protein Negative (Negative) Urine Glucose (UA) Negative (Negative) Urine Ketones Negative (Negative) Urine Blood Negative (Negative) Urine Nitrite Negative (Negative) Urine Bilirubin Negative (Negative) Urine Urobilinogen Negative (Negative) Ur Leukocyte Esterase 2+ H (Negative) Urine WBC (Auto) 21-50 H (0-5) /hpf Urine RBC (Auto) 0-2 (0-2) /hpf U Hyaline Cast (Auto) 0-2 (0-2) /lpf U Epithel Cells (Auto) 0-2 (0-2) /hpf Urine Bacteria (Auto) None Seen (None Seen) Urine Comment Administered Medications Discontinued Medications Ceftriaxone Sodium (Rocephin) 2,000 mg in 50 mls @ 100 mls/hr IV NOW STA Stop: 08/22/25 02:45 Last Infusion: 08/22/25 03:13 Dose: Infused Documented By: [email or web address] Admin: 08/22/25 02:27 Dose: 100 mls/hr Documented By: [email or web address] Ioversol (Optiray 320 100ml) 93 ml IV ONCE ONE Stop: 08/21/25 23:33 Last Admin: 08/21/25 23:32 Dose: 93 ml Documented By: LARS Lorazepam (Lorazepam 1 Mg/1 Ml Syr Ed Inj Use) 0.5 mg IV ONE STA Stop: 08/22/25 00:14 Last Admin: 08/22/25 04:52 Dose: Not Given Documented By: MED Imaging Data Radiologist's Impression: Chest CT 08/21/25 23:05 Exam(s): CT CHEST With Contrast IV Amt: 93 cc opti 320 EXAM: CT Chest With Intravenous Contrast CLINICAL HISTORY: Trauma. TECHNIQUE: Axial computed tomography images of the chest with intravenous contrast. CTDI is 26.95 mGy and DLP is 951.24 mGy-cm. Automated exposure control was utilized for the study. A dose lowering technique was utilized adhering to the principles of ALARA. CONTRAST: Patient received 93 cc opti 320 of IV contrast COMPARISON: CT chest with contrast 04/14/2020 FINDINGS: Artifacts: Scatter artifact likely related to patient's arm position. Limitations: There is respiratory artifact, which degrades image quality on multiple image slices. Lungs: No definite pulmonary contusive injury or focal consolidation identified. Pleural space: Unremarkable. No significant effusion. No pneumothorax. Heart: The cardiac chambers are enlarged. No pericardial effusion. Prominent coronary artery calcification involving the LAD and circumflex distributions. The cardiac chambers are normal in size. No pericardial effusion. Mediastinum: No mediastinal traumatic injury. Bones/joints: The osseous structures of the thorax are intact without acute osseous traumatic injury. Soft tissues: No significant overlying acute traumatic soft tissue abnormality. Vasculature: Atherosclerotic disease. The thoracic aorta is normal in caliber without evidence for acute periaortic traumatic injury. No dissection or aneurysm. Lymph nodes: Unremarkable. No enlarged lymph nodes. IMPRESSION: Accounting for respiratory artifact, no significant acute traumatic injury identified involving the chest/thorax. Electronically signed by: Maximo Bosch MD 08/22/25 00:[address] 08/21/25 23:06 Exam(s): CT C SPINE EXAM: CT Cervical Spine Without Intravenous Contrast CLINICAL HISTORY: Reason for exam: Trauma. TECHNIQUE: Axial computed tomography images of the cervical spine without intravenous contrast. CTDI is 20.05 mGy and DLP is 398.76 mGy-cm. Automated exposure control was utilized for the study. A dose lowering technique was utilized adhering to the principles of ALARA. COMPARISON: Prior CT scan of the cervical spine from April 14, 2020. FINDINGS: Vertebrae: There is a mild generalized curved to the left and straightening normal cervical lordosis. No acute fracture. Discs/spinal canal/neural foramina: No acute findings. No spinal canal stenosis. Soft tissues: Unremarkable. IMPRESSION: No evidence of acute cervical spine pathology. Electronically signed by: Kandace Chavez MD 08/22/25 01:02 AM Discharge Plan Visit Data Chief Complaint: Fall Stated Complaint: FELL THIS AM, CHAIR FELL ON TOP, THROAT+CHEST PAIN ED Provider: Nelida Caballero Discharge Problem: Elevated troponin, Acute chest pain Patient Disposition: Admitted As Inpatient Condition: Serious Discharge Instructions Interventions: ED Discharge Assessment Last Done: 08/22/25 04:32
[2025-08-21 23:32] LABS: Hematocrit (blood only) 41.2 % (42.0-52.0); Hemoglobin 13.5 g/dl (14.0-18.0); Immature Granulocytes # (auto) 0.03 K/uL (0.01-0.20); Immature Granulocytes % (auto) 0.3 %; Mean Corpuscular Hemoglobin 29.0 pg (25.0-34.0); Mean Corpuscular Volume 88.6 fL (80.0-100.0); Platelet Count 249 K/uL (130-400); RDW Standard Deviation 43.4 fL (36.4-46.3); Red Blood Count 4.65 M/uL (4.70-6.10); White Blood Count 10.93 K/ul (4.8-10.8)
[2025-08-21] MEDS: OPTIRAY 320 100ml IV ONE (23:32)
[2025-08-21 23:51] LABS: Alanine Aminotransferase 6.0 U/L (7-52); Albumin Globulin Ratio 1.3 (0.9-2); Albumin Level 4.0 gm/dl (3.4-5.0); Alkaline Phosphatase 77.0 U/L (34-104); Anion Gap 8.0 (3-11); Bilirubin,Total 0.4 mg/dl (0.2-1.0); Blood Urea Nitrogen 20.0 mg/dl (6-23); Calcium 9.4 mg/dl (8.6-10.3); Carbon Dioxide 26.0 mmol/L (21-32); Chloride 107.0 mmol/L (98-107); Creatine Kinase 96.0 U/L (30-223); Creatinine Clr Calc Pharmacy 43.3 ml/min; Globulin 3.1 gm/dl (2.5-4.0); Glucose 114.0 mg/dl (70-99(Fasting)); Lipase 57.0 U/L (11-82); Potassium 3.7 mmol/L (3.5-5.1); Sodium 141.0 mmol/L (136-145); Total Protein 7.1 gm/dl (6.0-8.3)
--- NOTE | 2025-08-22 00:15 | CT Scan Report ---
Exam(s): CT CHEST With Contrast IV Amt: 93 cc opti 320 EXAM: CT Chest With Intravenous Contrast CLINICAL HISTORY: Trauma. TECHNIQUE: Axial computed tomography images of the chest with intravenous contrast. CTDI is 26.95 mGy and DLP is 951.24 mGy-cm. Automated exposure control was utilized for the study. A dose lowering technique was utilized adhering to the principles of ALARA. CONTRAST: Patient received 93 cc opti 320 of IV contrast COMPARISON: CT chest with contrast 04/14/2020 FINDINGS: Artifacts: Scatter artifact likely related to patient's arm position. Limitations: There is respiratory artifact, which degrades image quality on multiple image slices. Lungs: No definite pulmonary contusive injury or focal consolidation identified. Pleural space: Unremarkable. No significant effusion. No pneumothorax. Heart: The cardiac chambers are enlarged. No pericardial effusion. Prominent coronary artery calcification involving the LAD and circumflex distributions. The cardiac chambers are normal in size. No pericardial effusion. Mediastinum: No mediastinal traumatic injury. Bones/joints: The osseous structures of the thorax are intact without acute osseous traumatic injury. Soft tissues: No significant overlying acute traumatic soft tissue abnormality. Vasculature: Atherosclerotic disease. The thoracic aorta is normal in caliber without evidence for acute periaortic traumatic injury. No dissection or aneurysm. Lymph nodes: Unremarkable. No enlarged lymph nodes. IMPRESSION: Accounting for respiratory artifact, no significant acute traumatic injury identified involving the chest/thorax. Electronically signed by: Maximo Bosch MD 08/22/25 00:14 AM
[2025-08-22 00:43] LABS: Appearance Urine Clear (Clear); Bacteria Urine Automated None Seen (None Seen); Cast Urine Automated 0-2 /lpf (0-2); Epithelial Cell Urine Auto 0-2 /hpf (0-2); Glucose Urine UA Negative (Negative); RBC Urine Automated 0-2 /hpf (0-2); WBC Urine Automated 21-50 /hpf (0-5)
[2025-08-22 00:49] LABS: INR 1.0 (0.9-1.1); Partial Thromboplastin Time 25 Seconds (21-31); Prothrombin Time 10.3 Seconds (9.0-12.0)
--- NOTE | 2025-08-22 01:03 | CT Scan Report ---
Exam(s): CT C SPINE EXAM: CT Cervical Spine Without Intravenous Contrast CLINICAL HISTORY: Reason for exam: Trauma. TECHNIQUE: Axial computed tomography images of the cervical spine without intravenous contrast. CTDI is 20.05 mGy and DLP is 398.76 mGy-cm. Automated exposure control was utilized for the study. A dose lowering technique was utilized adhering to the principles of ALARA. COMPARISON: Prior CT scan of the cervical spine from April 14, 2020. FINDINGS: Vertebrae: There is a mild generalized curved to the left and straightening normal cervical lordosis. No acute fracture. Discs/spinal canal/neural foramina: No acute findings. No spinal canal stenosis. Soft tissues: Unremarkable. IMPRESSION: No evidence of acute cervical spine pathology. Electronically signed by: Kandace Chavez MD 08/22/25 01:02 AM
[2025-08-22] MEDS: cefTRIAXone SODIUM 2,000 MG/50 ML BAG IV STA (02:27)
--- NOTE | 2025-08-22 03:09 | History & Physical Report ---
Date of Service August 22, 2025 Assessment & Plan (1) Fall: Plan: 85-year-old male with past medical history significant for type 2 diabetes, hypercholesterolemia, diabetic retinopathy, CKD stage IV, hypertension, primary parkinsonism, nonexudative macular degeneration, exudative macular degeneration comes because of fall and complaints of chest pain. Patient seems to fell backwards holding his recliner. Recliner fell on him. Seems took some time for him to take off the recliner. He was brought to the hospital. Complained of chest pain. Patient currently says the chest pain is better. Denies headache. Has some runny nose and sore throat. Says every morning he coughs up a lot of phlegm. Afebrile. Denies shortness of breath. Currently denies nausea. Denies abdominal pain. Normal bowel and bladder movements. Hemodynamics are okay. Not able to reach his son currently and confirm his medications from [facility] system. Fall Acute UTI Empiric Rocephin Will follow cultures PT OT when stable Chest pain Recliner fell on the chest Currently improving ct chest and cervical spine ct ok Initial troponin 31 repeat is 28 Will follow serial enzymes and echo Med/telemetry Consult cardiology in a.m. Type 2 diabetes Hold home insulin and p.o. medications Lantus and sliding scale Glycemic pharmacy consult Will monitor Parkinson's Continue home medications LEO and CKD stage IV Baseline creatinine 1.2 Presented creatinine 1.4 Holding lisinopril and Maxzide Follow repeat labs Hypertension Holding lisinopril and Maxzide for LEO IV labetalol as needed Will monitor Hyperlipidemia On statin and fenofibrate DVT prophylaxis Heparin subcu Disposition Med/telemetry Full code. History of Present Illness Chief Complaint: Fall and chest pain Primary Care Provider: Abel Greer DO 85-year-old male with past medical history significant for type 2 diabetes, hypercholesterolemia, diabetic retinopathy, CKD stage IV, hypertension, primary parkinsonism, nonexudative macular degeneration, exudative macular degeneration comes because of fall and complaints of chest pain. Patient seems to fell backwards holding his recliner. Recliner fell on him. Seems took some time for him to take off the recliner. He was brought to the hospital. Complained of chest pain. Patient currently says the chest pain is better. Denies headache. Has some runny nose and sore throat. Says every morning he coughs up a lot of phlegm. Afebrile. Denies shortness of breath. Currently denies nausea. Denies abdominal pain. Normal bowel and bladder movements. Hemodynamics are okay. Not able to reach his son currently and confirm his medications from [facility]. Past medical history. As mentioned above. Past surgical history. Injection of the right leg. Appendectomy. Social history. Lives alone. Quit smoking 1989. Smoked 1 pack a day for 26 years. No alcohol. No drug use. Family history. Brother had cancer. Mother had cancer. Father had AK. Brother had AK. Sister had lung cancer. Allergies Allergy/AdvReac Type Severity Reaction Status Date / Time ibuprofen AdvReac Unknown "BLEEDS IN Verified 07/01/25 08:32 STOMACH IF TAKES TOO MUCH" Home Medications Medication Instructions Recorded Confirmed Type carbidopa 25 mg-levodopa 100 mg 1.5 tab PO QID 08/22/25 08/22/25 History tablet dulaglutide 1.5 mg/0.5 mL 1.5 mg subcut WK 08/22/25 08/22/25 History subcutaneous pen injector (Trulicity) fenofibrate 54 mg tablet 54 mg PO DAILY 08/22/25 08/22/25 History insulin human U-100 NPH-regulr 72 unit subcut UD 08/22/25 08/22/25 History 70-30 mix 100 unit/mL subcutaneous susp (Novolin 70/30 U-100 Insulin) latanoprost 0.005 % eye drops 1 drp OPB HS 08/22/25 08/22/25 History lisinopril 20 mg tablet 20 mg PO BID 08/22/25 08/22/25 History metformin 500 mg tablet 500 mg PO BID 08/22/25 08/22/25 History simvastatin 40 mg tablet 40 mg PO DAILY 08/22/25 08/22/25 History triamterene 37.5 1 tab PO DAILY 08/22/25 08/22/25 History mg-hydrochlorothiazide 25 mg tablet vit C 250 mg-vit E 90 mg-zinc 40 1 tab PO BID 08/22/25 08/22/25 History mg-copper 1 [id number] capsule (PreserVision AREDS-2) Past Med/Surg History Problem List (Updated 08/22/25 @ 05:17 by Nelida A Botti, DO) Acute chest pain (Acute) Elevated troponin (Acute) Fall Parkinsons disease Left knee DJD Action tremor Parkinsonism Peripheral neuropathy Diabetes mellitus, type 2 (Chronic) Tremor of both hands Macular degeneration DVT prophylaxis RUE weakness (Acute) Weakness (Acute) Encounter for pre-operative examination Diabetes (Chronic) HTN (hypertension) (Chronic) HLD (hyperlipidemia) (Chronic) Benign positional vertigo (Acute) Medical History DDD (degenerative disc disease), lumbar Glaucoma Wet senile macular degeneration Chronic back pain Hypertension Hyperlipidemia Surgical History History of cataract surgery History of tonsillectomy Family History Son Family history of diabetes mellitus Father , 48 y/o s/p AK Myocardial infarction Brother , 48 y/o s/p AK, multiple CVA prior Stroke Myocardial infarction Social History Smoking Status: Never smoker Second Hand Exposure: No; Do You Dip or Chew Tobacco: No; Hx Alcohol Use: No Hx Substance Use: No Preferred Language: Russian Communication Ability: Effective Visual Impairment: Partially Limited Feather Mixer Required: No Beliefs That Will Affect Care: None marital status: / Current Living Situation: Alone Current Living Situation Comment: lives at home alone Feels Safe at Home: Yes Safety Concerns: Feels Safe At This Time Assistive Devices: Glasses and Walker Assistive Devices Comment: as needed Review of Systems Review of Systems: All systems reviewed & are unremarkable except as noted in HPI & below Physical Exam Physical Exam: General- Not in distress Head- atraumatic Eyes- PERRL. ENT- oropharynx clear Neck- supple, no JVD. Lungs- clear to auscultation no wheezing or crackles Heart- regular rhythm; no murmur, no gallop. Abdomen- normal bowel sounds, soft, nontender, no distension Extremities- mild pretibial edema present, no erythema seen Neuro- alert, oriented PERRL, no facial palsy; no dysarthria; moves extremities Results & Data Results & Data Vital Signs (Past 12 Hours) Vital Signs Temp Pulse Pulse Resp BP BP Pulse Ox 08/22/25 02:12 67 15 97 08/22/25 02:01 196/97 H 08/22/25 02:01 196/97 H 08/22/25 02:01 196/97 H 08/22/25 02:01 196/97 H 08/22/25 02:01 196/97 H 08/22/25 02:00 72 15 98 08/22/25 02:00 71 18 196/89 H 97 08/22/25 01:51 71 18 99 08/22/25 01:45 65 28 H 99 08/22/25 01:45 194/101 H 08/22/25 01:45 194/101 H 08/22/25 01:45 194/101 H 08/22/25 01:45 194/101 H 08/22/25 01:45 194/101 H 08/22/25 01:42 66 19 99 08/22/25 01:30 70 23 98 08/22/25 01:30 195/102 H 08/22/25 01:30 195/102 H 08/22/25 01:30 195/102 H 08/22/25 01:30 195/102 H 08/22/25 01:30 195/102 H 08/22/25 01:21 68 20 98 08/22/25 01:15 67 18 98 08/22/25 01:15 204/102 H 08/22/25 01:15 204/102 H 08/22/25 01:15 204/102 H 08/22/25 01:15 204/102 H 08/22/25 01:15 204/102 H 08/22/25 01:12 67 22 98 08/22/25 01:04 176/94 H 08/22/25 01:04 176/94 H 08/22/25 01:04 176/94 H 08/22/25 01:04 176/94 H 08/22/25 01:04 176/94 H 08/22/25 01:03 67 25 H 99 08/22/25 01:00 71 17 98 08/22/25 01:00 209/111 H 08/22/25 01:00 209/111 H 08/22/25 01:00 209/111 H 08/22/25 01:00 209/111 H 08/22/25 00:51 67 15 99 08/22/25 00:45 68 18 98 08/22/25 00:45 206/111 H 08/22/25 00:45 206/111 H 08/22/25 00:45 206/111 H 08/22/25 00:45 206/111 H 08/22/25 00:45 206/111 H 08/22/25 00:42 69 18 99 08/22/25 00:30 207/136 H 08/22/25 00:30 207/136 H 08/22/25 00:30 207/136 H 08/22/25 00:30 207/136 H 08/22/25 00:30 207/136 H 08/22/25 00:30 64 20 99 08/22/25 00:21 58 L 24 98 08/22/25 00:12 70 17 08/22/25 00:00 198/99 H 08/22/25 00:00 198/99 H 08/22/25 00:00 198/99 H 08/22/25 00:00 198/99 H 08/22/25 00:00 198/99 H 08/22/25 00:00 68 17 08/21/25 23:51 73 16 08/21/25 23:45 174/87 H 08/21/25 23:45 174/87 H 08/21/25 23:45 174/87 H 08/21/25 23:45 174/87 H 08/21/25 23:45 174/87 H 08/21/25 23:45 70 16 08/21/25 23:42 71 15 08/21/25 23:39 71 19 08/21/25 23:21 63 16 98 08/21/25 23:15 51 L 12 97 08/21/25 23:15 187/89 H 08/21/25 23:15 187/89 H 08/21/25 23:15 187/89 H 08/21/25 23:15 187/89 H 08/21/25 23:12 62 19 97 08/21/25 23:08 169/84 H 08/21/25 23:08 169/84 H 08/21/25 23:08 169/84 H 08/21/25 23:08 169/84 H 08/21/25 23:08 169/84 H 08/21/25 23:08 54 L 08/21/25 23:06 67 20 08/21/25 23:05 67 18 98 08/21/25 22:45 36.3 C L 62 16 163/78 H 97 08/21/25 22:44 67 18 169/84 H 97 O2 Del Method 08/22/25 02:12 08/22/25 02:01 08/22/25 02:01 08/22/25 02:01 08/22/25 02:01 08/22/25 02:01 08/22/25 02:00 08/22/25 02:00 Room Air 08/22/25 01:51 08/22/25 01:45 08/22/25 01:45 08/22/25 01:45 08/22/25 01:45 08/22/25 01:45 08/22/25 01:45 08/22/25 01:42 08/22/25 01:30 08/22/25 01:30 08/22/25 01:30 08/22/25 01:30 08/22/25 01:30 08/22/25 01:30 08/22/25 01:21 08/22/25 01:15 08/22/25 01:15 08/22/25 01:15 08/22/25 01:15 08/22/25 01:15 08/22/25 01:15 08/22/25 01:12 08/22/25 01:04 08/22/25 01:04 08/22/25 01:04 08/22/25 01:04 08/22/25 01:04 08/22/25 01:03 08/22/25 01:00 08/22/25 01:00 08/22/25 01:00 08/22/25 01:00 08/22/25 01:00 08/22/25 00:51 08/22/25 00:45 08/22/25 00:45 08/22/25 00:45 08/22/25 00:45 08/22/25 00:45 08/22/25 00:45 08/22/25 00:42 08/22/25 00:30 08/22/25 00:30 08/22/25 00:30 08/22/25 00:30 08/22/25 00:30 08/22/25 00:30 08/22/25 00:21 08/22/25 00:12 08/22/25 00:00 08/22/25 00:00 08/22/25 00:00 08/22/25 00:00 08/22/25 00:00 08/22/25 00:00 08/21/25 23:51 08/21/25 23:45 08/21/25 23:45 08/21/25 23:45 08/21/25 23:45 08/21/25 23:45 08/21/25 23:45 08/21/25 23:42 08/21/25 23:39 08/21/25 23:21 08/21/25 23:15 08/21/25 23:15 08/21/25 23:15 08/21/25 23:15 08/21/25 23:15 08/21/25 23:12 08/21/25 23:08 08/21/25 23:08 08/21/25 23:08 08/21/25 23:08 08/21/25 23:08 08/21/25 23:08 08/21/25 23:06 08/21/25 23:05 Room Air 08/21/25 22:45 Room Air 08/21/25 22:44 Room Air Diagnostic Findings Laboratory Results WBC 10.93 K/ul (4.8-10.8) H 08/21/25 23:05 RBC 4.65 M/uL (4.70-6.10) L 08/21/25 23:05 Hgb 13.5 g/dl (14.0-18.0) L 08/21/25 23:05 POC Hgb 13.6 g/dl (14.0-18.0) L 08/21/25 23:15 Hct 41.2 % (42.0-52.0) L 08/21/25 23:05 POC Hct 40 % (42-52) L 08/21/25 23:15 MCV 88.6 fL (80.0-100.0) 08/21/25 23:05 MCH 29.0 pg (25.0-34.0) 08/21/25 23:05 MCHC 32.8 g/dL (32.0-36.0) 08/21/25 23:05 RDW Std Deviation 43.4 fL (36.4-46.3) 08/21/25 23:05 RDW Coeff of Summer 13.2 % (11.5-14.5) 08/21/25 23:05 Plt Count 249 K/uL (130-400) 08/21/25 23:05 MPV 10.5 fL (9.4-12.4) 08/21/25 23:05 Immature Gran % (Auto) 0.3 % 08/21/25 23:05 Neut % (Auto) 53.6 % 08/21/25 23:05 Lymph % (Auto) 35.0 % 08/21/25 23:05 Worth % (Auto) 9.0 % 08/21/25 23:05 Eos % (Auto) 1.6 % 08/21/25 23:05 Baso % (Auto) 0.5 % 08/21/25 23:05 Neut # (Auto) 5.85 K/uL (1.40-6.50) 08/21/25 23:05 Lymph # (Auto) 3.83 K/uL (1.20-3.40) H 08/21/25 23:05 Worth # (Auto) 0.98 K/uL (0.11-0.59) H 08/21/25 23:05 Eos # (Auto) 0.18 K/uL (0.00-0.50) 08/21/25 23:05 Baso # (Auto) 0.06 K/uL (0.00-0.20) 08/21/25 23:05 Immature Gran # (Auto) 0.03 K/uL (0.01-0.20) 08/21/25 23:05 PT 10.3 Seconds (9.0-12.0) 08/22/25 00:04 INR 1.0 (0.9-1.1) 08/22/25 00:04 APTT 25 Seconds (21-31) 08/22/25 00:04 PTT Ratio 0.9 08/22/25 00:04 POC Sodium 142 mmol/L (135-144) 08/21/25 23:15 Sodium 141 mmol/L (136-145) 08/21/25 23:05 POC Potassium 3.7 mmol/L (3.3-5.0) 08/21/25 23:15 Potassium 3.7 mmol/L (3.5-5.1) 08/21/25 23:05 POC Chloride 104 mmol/L (101-112) 08/21/25 23:15 Chloride 107 mmol/L (98-107) 08/21/25 23:05 Carbon Dioxide 26 mmol/L (21-32) 08/21/25 23:05 POC Total CO2 24 mmol/L (24-31) 08/21/25 23:15 Anion Gap 8 (3-11) 08/21/25 23:05 POC Anion Gap 18.0 mmol/L (16-25) 08/21/25 23:15 POC BUN 20 mg/dl (7-18) H 08/21/25 23:15 BUN 20 mg/dl (6-23) 08/21/25 23:05 Creatinine 1.41 mg/dl (0.6-1.4) H 08/21/25 23:05 POC Creatinine 1.5 mg/dl (0.6-1.3) H 08/21/25 23:15 Est Cr Clr Drug Dosing 43.3 ml/min 08/21/25 23:05 eGFR 48.84 08/21/25 23:05 BUN/Creatinine Ratio 14.2 (10-20) 08/21/25 23:05 Glucose 114 mg/dl (70-99(Fasting)) H 08/21/25 23:05 POC Glucose (other) 112 mg/dl (70-99) H 08/21/25 23:15 Calcium 9.4 mg/dl (8.6-10.3) 08/21/25 23:05 POC Ioniz Calcium Rober 1.23 mmol/l (1.12-1.32) 08/21/25 23:15 Total Bilirubin 0.4 mg/dl (0.2-1.0) 08/21/25 23:05 AST 14 U/L (13-39) 08/21/25 23:05 ALT 6 U/L (7-52) L 08/21/25 23:05 Alkaline Phosphatase 77 U/L (34-104) 08/21/25 23:05 Total Creatine Kinase 96 U/L (30-223) 08/21/25 23:05 Troponin I High Sens 28.4 pg/ml (0-20) H 08/22/25 01:41 Total Protein 7.1 gm/dl (6.0-8.3) 08/21/25 23:05 Albumin 4.0 gm/dl (3.4-5.0) 08/21/25 23:05 Globulin 3.1 gm/dl (2.5-4.0) 08/21/25 23:05 Albumin/Globulin Ratio 1.3 (0.9-2) 08/21/25 23:05 Lipase 57 U/L (11-82) 08/21/25 23:05 Urine Color Yellow 08/22/25 00:20 Urine Appearance Clear (Clear) 08/22/25 00:20 Urine pH 7.0 (4.5-7.5) 08/22/25 00:20 Ur Specific [place] 1.034 (1.000-1.030) H 08/22/25 00:20 Urine Protein Negative (Negative) 08/22/25 00:20 Urine Glucose (UA) Negative (Negative) 08/22/25 00:20 Urine Ketones Negative (Negative) 08/22/25 00:20 Urine Blood Negative (Negative) 08/22/25 00:20 Urine Nitrite Negative (Negative) 08/22/25 00:20 Urine Bilirubin Negative (Negative) 08/22/25 00:20 Urine Urobilinogen Negative (Negative) 08/22/25 00:20 Ur Leukocyte Esterase 2+ (Negative) H 08/22/25 00:20 Urine WBC (Auto) 21-50 /hpf (0-5) H 08/22/25 00:20 Urine RBC (Auto) 0-2 /hpf (0-2) 08/22/25 00:20 U Hyaline Cast (Auto) 0-2 /lpf (0-2) 08/22/25 00:20 U Epithel Cells (Auto) 0-2 /hpf (0-2) 08/22/25 00:20 Urine Bacteria (Auto) None Seen (None Seen) 08/22/25 00:20 Urine Comment 08/22/25 00:[address] 08/21/25 23:05 Exam(s): CT CHEST With Contrast IV Amt: 93 cc opti 320 EXAM: CT Chest With Intravenous Contrast CLINICAL HISTORY: Trauma. TECHNIQUE: Axial computed tomography images of the chest with intravenous contrast. CTDI is 26.95 mGy and DLP is 951.24 mGy-cm. Automated exposure control was utilized for the study. A dose lowering technique was utilized adhering to the principles of ALARA. CONTRAST: Patient received 93 cc opti 320 of IV contrast COMPARISON: CT chest with contrast 04/14/2020 FINDINGS: Artifacts: Scatter artifact likely related to patient's arm position. Limitations: There is respiratory artifact, which degrades image quality on multiple image slices. Lungs: No definite pulmonary contusive injury or focal consolidation identified. Pleural space: Unremarkable. No significant effusion. No pneumothorax. Heart: The cardiac chambers are enlarged. No pericardial effusion. Prominent coronary artery calcification involving the LAD and circumflex distributions. The cardiac chambers are normal in size. No pericardial effusion. Mediastinum: No mediastinal traumatic injury. Bones/joints: The osseous structures of the thorax are intact without acute osseous traumatic injury. Soft tissues: No significant overlying acute traumatic soft tissue abnormality. Vasculature: Atherosclerotic disease. The thoracic aorta is normal in caliber without evidence for acute periaortic traumatic injury. No dissection or aneurysm. Lymph nodes: Unremarkable. No enlarged lymph nodes. IMPRESSION: Accounting for respiratory artifact, no significant acute traumatic injury identified involving the chest/thorax. Electronically signed by: Maximo Bosch MD 08/22/25 00:[address] 08/21/25 23:06 Exam(s): CT C SPINE EXAM: CT Cervical Spine Without Intravenous Contrast CLINICAL HISTORY: Reason for exam: Trauma. TECHNIQUE: Axial computed tomography images of the cervical spine without intravenous contrast. CTDI is 20.05 mGy and DLP is 398.76 mGy-cm. Automated exposure control was utilized for the study. A dose lowering technique was utilized adhering to the principles of ALARA. COMPARISON: Prior CT scan of the cervical spine from April 14, 2020. FINDINGS: Vertebrae: There is a mild generalized curved to the left and straightening normal cervical lordosis. No acute fracture. Discs/spinal canal/neural foramina: No acute findings. No spinal canal stenosis. Soft tissues: Unremarkable. IMPRESSION: No evidence of acute cervical spine pathology. Electronically signed by: Kandace Chavez MD 08/22/25 01:02 AM ECG Additional Comments: ECG. Sinus bradycardia rate 50. ST and T wave abnormality in lateral leads. QTc 370. Code Status & VTE Plan VTE Prophylaxis Plan VTE Prophylaxis will be ordered: Yes
[2025-08-22 03:56] LABS: Magnesium 2.0 mg/dl (1.7-2.4)
[2025-08-22] MEDS ORDERED: CARBOHYDRATES FOR HYPOGLYCEMIA PO PRN (04:49)
[2025-08-22] MEDS ORDERED: DEXTROSE 50% 50 ML SYRINGE IV PRN (04:49)
[2025-08-22] MEDS ORDERED: GLUCAGON FOR INJ 1 MG VIAL SQ PRN (04:49)
[2025-08-22] MEDS ORDERED: PHARMACY GLYCEMIC MGMT CONSULT PRN (04:49)
[2025-08-22] MEDS ORDERED: GLUCOSE 40% GEL 15 GM TUBE PO PRN (04:49)
[2025-08-22] MEDS ORDERED: LABETALOL HCL IV 5 MG/ML 20ML IV PRN (04:49)
[2025-08-22] MEDS ORDERED: ACETAMINOPHEN 325 MG TAB PO PRN (04:49)
[2025-08-22] MEDS ORDERED: NITROGLYCERIN SL 0.4 MG/TAB TAB SL PRN (04:49)
[2025-08-22] MEDS ORDERED: GLUCOSE 10 TAB/TUBE PO PRN (04:49)
[2025-08-22] MEDS ORDERED: POLYETHYLENE (MIRALAX) 17 GM PACK PO PRN (04:49)
[2025-08-22] MEDS: LORazepam 1 MG/1 ML SYR ED Inj Use IV STA (04:52)
[2025-08-22 04:53] VITALS: RESP 18
[2025-08-22] MEDS: INSULIN ASPART PER UNIT CHARGE SC SCH (05:23)
[2025-08-22] MEDS: HEPARIN SOD 5,000 UNIT/0.5 ML VIAL SQ SCH (06:14)
[2025-08-22 07:25] LABS: Hematocrit (blood only) 39.5 % (42.0-52.0); Hemoglobin 13.2 g/dl (14.0-18.0); Immature Granulocytes # (auto) 0.02 K/uL (0.01-0.20); Immature Granulocytes % (auto) 0.2 %; Mean Corpuscular Hemoglobin 29.4 pg (25.0-34.0); Mean Corpuscular Volume 88.0 fL (80.0-100.0); Platelet Count 245 K/uL (130-400); RDW Standard Deviation 42.9 fL (36.4-46.3); Red Blood Count 4.49 M/uL (4.70-6.10); White Blood Count 11.38 K/ul (4.8-10.8)
--- NOTE | 2025-08-22 07:39 | Cardiology Consultation ---
Date of Consultation August 22, 2025 Assessment & Plan (1) Acute chest pain: (2) Fall: (3) Elevated troponin: (4) HTN (hypertension): (5) HLD (hyperlipidemia): (6) Parkinsons disease: Plan Assessment: 85 year old male presented after sustaining a ground level fall in which he pulled a recliner chair back onto himself. Endorsed chest pain, but no other associated cardiac symptoms. EKG with no acute changes. Troponin with minimal elevation. LEO on initial blood work, and therefore routine medications were placed on hold by primary team. Cardiology consulted for further evaluation/recommendations. Plan: 1. Acute Chest pain 2. Fall 3. Elevated troponin 4. HTN 5. HLD 6. Parkinson's disease -Patient unable to quantify pain, but reports that it resolved shortly after arrival to the ER. No recurrence. Denies any chest pain outside of this event and no chest pain, pressure or shortness of breath with exertion. -EKG on admission shows SR with no acute ST-T wave changes. This study was compared with EKG dated March 2025 outpatient showing same T wave inversion in lateral leads as before. Denies any prior cardiac history, has never followed with a claims manager and has never had any additional cardiac testing. -Minimally elevated troponin in the setting of LEO, fall with unknown length of time on floor. Obtain resting echocardiogram to assess overall structure, function and for any wall motion abnormalities. -Hypertensive on examination; however, home medications were placed on hold due to initial abnormal creatine. Repeat Creatine is normal. Patient's baseline Cr is 1.1-1.2mg/dL. Please restart Lisinopril 20mg PO BID, first dose now. -Continue Simvastatin for cholesterol control. -Patient may have a cardiac prudent diet -Continue parkinson's medications as per OP regimen. Patient is followed by neurology OP. -Further recommendations as appropriate pending echocardiogram Case has been discussed with Dr. Morales. Further recommendations regarding plan of care as per his assessment. FANNY Cunningham [facility] Cardiology [facility] Supervising Physician Co-Signing Physician Notes Cardiology attending: Patient was discharged before I had the opportunity to examine him in person. History was reviewed and his case was discussed with FANNY Fortune. Agree with her findings and plan as outlined. Transthoracic echocardiogram performed today 08/22/2025 with results as summarized: The study was technically adequate. There is moderate concentric left ventricular hypertrophy. No regional wall motion abnormalities noted. Left ventricular systolic function is normal. Left Ventricular Ejection Fraction = 60-65%. The right ventricle is normal in size and function. There is mild mitral annular calcification. Significant mitral regurgitation is absent. There is no mitral valve stenosis. Doppler findings do not suggest pulmonary hypertension. Grade I diastolic dysfunction, (abnormal relaxation pattern). - Clinical presentation not suggestive of an acute coronary syndrome -Question if the mild troponin elevation is due to myocardial strain in the setting of-moderate concentric left ventricular hypertrophy and hypertension. -Lateral T wave changes present on prior EKG performed in March 2025 as an outpatient as well as then noted in the [facility] record dated 04/14/2020 without significant interval change and consistent with underlying left ventricular hypertrophy rather than a acute ischemia. - Outpatient cardiology follow-up to be arranged at which time his blood pressure can be reassessed he is to continue lisinopril, triamterene/HCTZ. Angelito Morales DO History of Present Illness Reason for Consultation: elevated troponin Requesting Physician: Dung keith Attending Physician: Kathryn Liu MD History of Present Illness HPI: Patient is an 85 year old male with PMHx significant for HTN, HLD, CKD stage IV, Parkinson's disease, macular degeneration, Type II DM and recurrent falls that presented to the ER after sustaining a fall at home. Patient typically ambulates his cane, he lost his balance falling backwards and had grabbed his recliner chair in the process. The patient fell and the recliner chair fell onto him hitting him in the chest. Patient had laid on the floor for an unknown duration of time. Upon seeing patient in consultation this morning, son is at bedside. Patient denies any chest pain, pressure or palpitations. When asked to describe the chest pain he had experienced yesterday and he said "I don't know it was just there" Patient reports that it had resolved upon arrival to the hospital, could not quantify the pain or give descriptive characteristics. He endorsed neck/throat pain that was reproducible to palpation. EKG on admission shows Sinus bradycardia, Rate 50bpm with ST-T wave abnormality noted in lateral leads (T wave inversion in leads V5 and V6). This was compared with a OP EKG obtained through [facility] on 04/12/[address] and is [address] non-contrast: no significant acute traumatic injury involving the chest/thorax C-Spine CT: Negative UA abnormal-->Culture pending High sensitivity troponin 31.6/28.4/20.3 Review of telemetry shows Sinus rhythm, rates 60's. Echocardiogram pending. Allergies Allergy/AdvReac Type Severity Reaction Status Date / Time ibuprofen AdvReac Unknown "BLEEDS IN Verified 07/01/25 08:32 STOMACH IF TAKES TOO MUCH" Home Medications Medication Instructions Recorded Confirmed Type carbidopa 25 mg-levodopa 100 mg 1.5 tab PO QID 08/22/25 08/22/25 History tablet cephalexin 500 mg capsule 500 mg PO BID 5 days #10 caps 08/22/25 Rx dulaglutide 1.5 mg/0.5 mL 1.5 mg subcut WK 08/22/25 08/22/25 History subcutaneous pen injector (Trulicity) fenofibrate 54 mg tablet 54 mg PO DAILY 08/22/25 08/22/25 History insulin human U-100 NPH-regulr 72 unit subcut UD 08/22/25 08/22/25 History 70-30 mix 100 unit/mL subcutaneous susp (Novolin 70/30 U-100 Insulin) latanoprost 0.005 % eye drops 1 drp OPB HS 08/22/25 08/22/25 History lisinopril 20 mg tablet 20 mg PO BID 08/22/25 08/22/25 History metformin 500 mg tablet 500 mg PO BID 08/22/25 08/22/25 History simvastatin 40 mg tablet 40 mg PO DAILY 08/22/25 08/22/25 History triamterene 37.5 1 tab PO DAILY 08/22/25 08/22/25 History mg-hydrochlorothiazide 25 mg tablet vit C 250 mg-vit E 90 mg-zinc 40 1 tab PO BID 08/22/25 08/22/25 History mg-copper 1 [id number] capsule (PreserVision AREDS-2) Patient History Medical History DDD (degenerative disc disease), lumbar Glaucoma Wet senile macular degeneration Chronic back pain Hypertension Hyperlipidemia Surgical History History of cataract surgery History of tonsillectomy Family History Son Family history of diabetes mellitus Father , 48 y/o s/p SD Myocardial infarction Brother , 48 y/o s/p SD, multiple CVA prior Stroke Myocardial infarction Social History Smoking Status: Never smoker Second Hand Exposure: No; Do You Dip or Chew Tobacco: No; Hx Alcohol Use: No Hx Substance Use: No Preferred Language: Yakut Communication Ability: Effective Visual Impairment: Partially Limited Foundation Digger Required: No Beliefs That Will Affect Care: None marital status: / Current Living Situation: Alone Current Living Situation Comment: lives at home alone Feels Safe at Home: Yes Safety Concerns: Feels Safe At This Time Assistive Devices: Glasses and Walker Assistive Devices Comment: as needed Review of Systems Review of Systems: All systems reviewed & are unremarkable except as noted in HPI & below Physical Exam Constitutional: well developed and well nourished; no acute distress and not ill appearing Neck: normal visual inspection and trachea midline Respiratory: normal respiratory effort, lungs clear to auscultation Cardiovascular: Rate/Rhythm: regular rate and regular rhythm Heart Sounds: normal S1 and normal S2; no murmur Vessels: dorsalis pedis pulses present; no JVD Skin: no rashes, warm and dry Psychiatric: A+Ox3, euthymic affect Results & Data Vital Signs (Past 12 Hours) Vital Signs Temp Pulse Pulse Resp BP BP BP 08/22/25 07:19 68 08/22/25 04:53 36.7 C 66 18 157/88 H 08/22/25 04:49 08/22/25 04:49 36.7 C 66 18 157/88 H 08/22/25 04:32 72 08/22/25 03:24 72 08/22/25 03:14 168/84 H 08/22/25 02:12 67 15 08/22/25 02:01 196/97 H 08/22/25 02:01 196/97 H 08/22/25 02:01 196/97 H 08/22/25 02:01 196/97 H 08/22/25 02:01 196/97 H 08/22/25 02:00 72 15 08/22/25 02:00 71 18 196/89 H 08/22/25 01:51 71 18 08/22/25 01:45 65 28 H 08/22/25 01:45 194/101 H 08/22/25 01:45 194/101 H 08/22/25 01:45 194/101 H 08/22/25 01:45 194/101 H 08/22/25 01:45 194/101 H 08/22/25 01:42 66 19 08/22/25 01:30 70 23 08/22/25 01:30 195/102 H 08/22/25 01:30 195/102 H 08/22/25 01:30 195/102 H 08/22/25 01:30 195/102 H 08/22/25 01:30 195/102 H 08/22/25 01:21 68 20 08/22/25 01:15 67 18 08/22/25 01:15 204/102 H 08/22/25 01:15 204/102 H 08/22/25 01:15 204/102 H 08/22/25 01:15 204/102 H 08/22/25 01:15 204/102 H 08/22/25 01:12 67 22 08/22/25 01:04 176/94 H 08/22/25 01:04 176/94 H 08/22/25 01:04 176/94 H 08/22/25 01:04 176/94 H 08/22/25 01:04 176/94 H 08/22/25 01:03 67 25 H 08/22/25 01:00 71 17 08/22/25 01:00 209/111 H 08/22/25 01:00 209/111 H 08/22/25 01:00 209/111 H 08/22/25 01:00 209/111 H 08/22/25 00:51 67 15 08/22/25 00:45 68 18 08/22/25 00:45 206/111 H 08/22/25 00:45 206/111 H 08/22/25 00:45 206/111 H 08/22/25 00:45 206/111 H 08/22/25 00:45 206/111 H 08/22/25 00:42 69 18 08/22/25 00:30 207/136 H 08/22/25 00:30 207/136 H 08/22/25 00:30 207/136 H 08/22/25 00:30 207/136 H 08/22/25 00:30 207/136 H 08/22/25 00:30 64 20 08/22/25 00:21 58 L 24 08/22/25 00:12 70 17 08/22/25 00:00 198/99 H 08/22/25 00:00 198/99 H 08/22/25 00:00 198/99 H 08/22/25 00:00 198/99 H 08/22/25 00:00 198/99 H 08/22/25 00:00 68 17 08/21/25 23:51 73 16 08/21/25 23:45 174/87 H 08/21/25 23:45 174/87 H 08/21/25 23:45 174/87 H 08/21/25 23:45 174/87 H 08/21/25 23:45 174/87 H 08/21/25 23:45 70 16 08/21/25 23:42 71 15 08/21/25 23:39 71 19 08/21/25 23:21 63 16 08/21/25 23:15 51 L 12 08/21/25 23:15 187/89 H 08/21/25 23:15 187/89 H 08/21/25 23:15 187/89 H 08/21/25 23:15 187/89 H 08/21/25 23:12 62 19 08/21/25 23:08 169/84 H 08/21/25 23:08 169/84 H 08/21/25 23:08 169/84 H 08/21/25 23:08 169/84 H 08/21/25 23:08 169/84 H 08/21/25 23:08 54 L 08/21/25 23:06 67 20 08/21/25 23:05 67 18 08/21/25 22:45 36.3 C L 62 16 163/78 H 08/21/25 22:44 67 18 169/84 H Pulse Ox Pulse Ox O2 Del Method O2 Del Method 08/22/25 07:19 08/22/25 04:53 97 Room Air 08/22/25 04:49 97 Room Air 08/22/25 04:49 97 Room Air 08/22/25 04:32 Room Air 08/22/25 03:24 08/22/25 03:14 08/22/25 02:12 97 08/22/25 02:01 08/22/25 02:01 08/22/25 02:01 08/22/25 02:01 08/22/25 02:01 08/22/25 02:00 98 08/22/25 02:00 97 Room Air 08/22/25 01:51 99 08/22/25 01:45 99 08/22/25 01:45 08/22/25 01:45 08/22/25 01:45 08/22/25 01:45 08/22/25 01:45 08/22/25 01:42 99 08/22/25 01:30 98 08/22/25 01:30 08/22/25 01:30 08/22/25 01:30 08/22/25 01:30 08/22/25 01:30 08/22/25 01:21 98 08/22/25 01:15 98 08/22/25 01:15 08/22/25 01:15 08/22/25 01:15 08/22/25 01:15 08/22/25 01:15 08/22/25 01:12 98 08/22/25 01:04 08/22/25 01:04 08/22/25 01:04 08/22/25 01:04 08/22/25 01:04 08/22/25 01:03 99 08/22/25 01:00 98 08/22/25 01:00 08/22/25 01:00 08/22/25 01:00 08/22/25 01:00 08/22/25 00:51 99 08/22/25 00:45 98 08/22/25 00:45 08/22/25 00:45 08/22/25 00:45 08/22/25 00:45 08/22/25 00:45 08/22/25 00:42 99 08/22/25 00:30 08/22/25 00:30 08/22/25 00:30 08/22/25 00:30 08/22/25 00:30 08/22/25 00:30 99 08/22/25 00:21 98 08/22/25 00:12 08/22/25 00:00 08/22/25 00:00 08/22/25 00:00 08/22/25 00:00 08/22/25 00:00 08/22/25 00:00 08/21/25 23:51 08/21/25 23:45 08/21/25 23:45 08/21/25 23:45 08/21/25 23:45 08/21/25 23:45 08/21/25 23:45 08/21/25 23:42 08/21/25 23:39 08/21/25 23:21 98 08/21/25 23:15 97 08/21/25 23:15 08/21/25 23:15 08/21/25 23:15 08/21/25 23:15 08/21/25 23:12 97 08/21/25 23:08 08/21/25 23:08 08/21/25 23:08 08/21/25 23:08 08/21/25 23:08 08/21/25 23:08 08/21/25 23:06 08/21/25 23:05 98 Room Air 08/21/25 22:45 97 Room Air 08/21/25 22:44 97 Room Air Laboratory Results Cardiac Enzymes 08/21/25 08/22/25 08/22/25 Range/Units 23:05 01:41 06:55 AST 14 (13-39) U/L Troponin I High Sens 31.6 H 28.4 H 20.3 H (0-20) pg/ml Coagulation 08/21/25 08/22/25 Range/Units 23:05 00:04 PT Cancelled 10.3 APTT Cancelled 25 CBC 08/21/25 08/22/25 Range/Units 23:05 06:56 WBC 10.93 H 11.38 H (4.8-10.8) K/ul RBC 4.65 L 4.49 L (4.70-6.10) M/uL Hgb 13.5 L 13.2 L (14.0-18.0) g/dl Hct 41.2 L 39.5 L (42.0-52.0) % Plt Count 249 245 (130-400) K/uL Neut # (Auto) 5.85 7.13 H (1.40-6.50) K/uL Lymph # (Auto) 3.83 H 2.97 (1.20-3.40) K/uL [place] # (Auto) 0.98 H 0.99 H (0.11-0.59) K/uL Eos # (Auto) 0.18 0.20 (0.00-0.50) K/uL Baso # (Auto) 0.06 0.07 (0.00-0.20) K/uL Comprehensive Metabolic Panel 08/21/25 08/22/25 Range/Units 23:05 06:55 Sodium 141 141 (136-145) mmol/L Potassium 3.7 3.9 (3.5-5.1) mmol/L Chloride 107 105 (98-107) mmol/L Carbon Dioxide 26 28 (21-32) mmol/L BUN 20 17 (6-23) mg/dl Creatinine 1.41 H 1.16 (0.6-1.4) mg/dl Glucose 114 H 122 H (70-99(Fasting)) mg/dl Calcium 9.4 9.1 (8.6-10.3) mg/dl AST 14 (13-39) U/L ALT 6 L (7-52) U/L Alkaline Phosphatase 77 (34-104) U/L Total Protein 7.1 (6.0-8.3) gm/dl Albumin 4.0 (3.4-5.0) gm/dl Intake and Output 08/21/25 08/22/25 08/22/25 22:59 06:59 14:59 Intake Total 50 / 50 Balance 50 / 50 Intake: IV 50 / 50 cefTRIAXone SODIUM 2,000 mg In 50 / 50 50 ml @ 100 mls/hr IV NOW STA Rx#:[id number] Other: Other Intake Source npo # Unmeasured Voids 1 Weight 97.1 kg 97.154 kg Weight Measurement Method Chair Scale Standing Scale Coding Level of Care Code 78555 IN/OBS CONSULT LVL 5,80M Diagnoses Acute chest pain R07.9 Fall W19.XXXA Elevated troponin R79.89 HTN (hypertension) I10 HLD (hyperlipidemia) E78.5 Parkinsons disease G20.A1
[2025-08-22 07:40] LABS: Anion Gap 8.0 (3-11); Blood Urea Nitrogen 17.0 mg/dl (6-23); Calcium 9.1 mg/dl (8.6-10.3); Carbon Dioxide 28.0 mmol/L (21-32); Chloride 105.0 mmol/L (98-107); Creatinine Clr Calc Pharmacy 52.6 ml/min; Glucose 122.0 mg/dl (70-99(Fasting)); Magnesium 1.9 mg/dl (1.7-2.4); Potassium 3.9 mmol/L (3.5-5.1); Sodium 141.0 mmol/L (136-145)
[2025-08-22 08:07] VITALS: TEMP 97.9
[2025-08-22 08:43] LABS: Hemoglobin A1C 7.4 % (4.5-5.6)
[2025-08-22] MEDS: LANTUS PER UNIT CHARGE SQ SCH (09:58)
[2025-08-22] MEDS: CARBIDOPA/LEVODOPA 25/100MG TAB PO SCH (09:58)
[2025-08-22] MEDS: SIMVASTATIN 40 MG TAB PO SCH (09:58)
[2025-08-22] MEDS: CEROVITE ADV FORMULA TAB PO SCH (09:58)
--- NOTE | 2025-08-22 11:31 | Hospitalist Progress Note ---
Date of Service August 22, 2025 Assessment & Plan (1) Fall: Plan: 85-year-old male with past medical history significant for type 2 diabetes, hypercholesterolemia, diabetic retinopathy, CKD stage IV, hypertension, primary parkinsonism, nonexudative macular degeneration, exudative macular degeneration comes because of fall and complaints of chest pain. Patient seems to fell backwards holding his recliner. Recliner fell on him. Seems took some time for him to take off the recliner. He was brought to the hospital. Complained of chest pain. Patient currently says the chest pain is better. Denies headache. Has some runny nose and sore throat. Says every morning he coughs up a lot of phlegm. Afebrile. Denies shortness of breath. Currently denies nausea. Denies abdominal pain. Normal bowel and bladder movements. Hemodynamics are okay. Not able to reach his son currently and confirm his medications from [facility] system. Mechanical fall with injury on the chest from the recliner May be complicated by Acute UTI and Parkinson's disease Empiric Rocephin pending Urine culture is pending Will get PT OT evaluation prior to discharge Chest pain Recliner fell on the chest CT chest and cervical spine ct ok EKG and serial cardiac enzymes remain unremarkable Appreciate cardiology input Remains free from any cardiac symptoms Type 2 diabetes Hold home insulin and p.o. medications Lantus and sliding scale Glycemic pharmacy consult Blood sugar ACHS Parkinson's Continue home medications Has significant tremors secondary to Parkinson diseaseWill continue current medications LEO and CKD stage IV Baseline creatinine 1.2 Presented creatinine 1.4 Holding lisinopril and Maxzide Follow repeat labs- kidney function is normal and will restart lisinopril Hypertension Holding lisinopril and Maxzide for LEO IV labetalol as needed Blood pressure remains on the upper side at 172/68 and will restart lisinopril Hyperlipidemia On statin and fenofibrate DVT prophylaxis Heparin subcu Disposition Med/telemetry Full code. Admission and Anticipated Discharge Date Admission Date: August 22, 2025 Subjective 08/22/2025 The patient was seen and examined in medical telemetry unit He had a mechanical fall with injury over chest from a recliner and came in with chest pain Denies any more chest pain in the hospital and denies any other significant symptoms He wants to go home Review of Systems Review of Systems: All systems reviewed and are unremarkable except as noted below Physical Exam Physical Exam: Sitting on a chair without any acute distress Constitutional: well developed, well nourished, + ill appearing and + obese Eyes: PERRL, conjunctivae normal, anicteric sclerae ENMT: external ear and nose normal, oropharynx normal Neck: trachea midline, no thyromegaly Respiratory: + labored breathing; no respiratory dist ress Auscultation: lungs clear to auscultation bilaterally; no crackles Cardiovascular: Rate/Rhythm: regular rate and regular rhythm; not tachycardic Heart Sounds: normal S1 and normal S2; no murmur Extremities: + edema (Trace edema bilaterally the patient. ) Gastrointestinal (Abdomen): Inspection/Auscultation: normal bowel sounds; abdomen not distended Percussion/Palpation: abdomen soft; abdomen nontender Musculoskeletal: No acute arthritis involving any of the joint Neurologic: normal touch/pain/proprioception and moves all extremities; no focal motor deficits Has significant tremors from Parkinson disease Lymphatic: no cervical or axillary lymphadenopathy Results & Data Results & Data Vital Signs (Past 12 Hours) Vital Signs Temp Pulse Pulse Resp BP BP BP 08/22/25 08:06 36.6 C 65 18 170/68 H 08/22/25 07:19 68 08/22/25 04:53 36.7 C 66 18 157/88 H 08/22/25 04:49 08/22/25 04:49 36.7 C 66 18 157/88 H 08/22/25 04:32 72 08/22/25 03:24 72 08/22/25 03:14 168/84 H 08/22/25 02:12 67 15 08/22/25 02:01 196/97 H 08/22/25 02:01 196/97 H 08/22/25 02:01 196/97 H 08/22/25 02:01 196/97 H 08/22/25 02:01 196/97 H 08/22/25 02:00 72 15 08/22/25 02:00 71 18 196/89 H 08/22/25 01:51 71 18 08/22/25 01:45 65 28 H 08/22/25 01:45 194/101 H 08/22/25 01:45 194/101 H 08/22/25 01:45 194/101 H 08/22/25 01:45 194/101 H 08/22/25 01:45 194/101 H 08/22/25 01:42 66 19 08/22/25 01:30 70 23 08/22/25 01:30 195/102 H 08/22/25 01:30 195/102 H 08/22/25 01:30 195/102 H 08/22/25 01:30 195/102 H 08/22/25 01:30 195/102 H 08/22/25 01:21 68 20 08/22/25 01:15 67 18 08/22/25 01:15 204/102 H 08/22/25 01:15 204/102 H 08/22/25 01:15 204/102 H 08/22/25 01:15 204/102 H 08/22/25 01:15 204/102 H 08/22/25 01:12 67 22 08/22/25 01:04 176/94 H 08/22/25 01:04 176/94 H 08/22/25 01:04 176/94 H 08/22/25 01:04 176/94 H 08/22/25 01:04 176/94 H 08/22/25 01:03 67 25 H 08/22/25 01:00 71 17 08/22/25 01:00 209/111 H 08/22/25 01:00 209/111 H 08/22/25 01:00 209/111 H 08/22/25 01:00 209/111 H 08/22/25 00:51 67 15 08/22/25 00:45 68 18 08/22/25 00:45 206/111 H 08/22/25 00:45 206/111 H 08/22/25 00:45 206/111 H 08/22/25 00:45 206/111 H 08/22/25 00:45 206/111 H 08/22/25 00:42 69 18 08/22/25 00:30 207/136 H 08/22/25 00:30 207/136 H 08/22/25 00:30 207/136 H 08/22/25 00:30 207/136 H 08/22/25 00:30 207/136 H 08/22/25 00:30 64 20 08/22/25 00:21 58 L 24 08/22/25 00:12 70 17 08/22/25 00:00 198/99 H 08/22/25 00:00 198/99 H 08/22/25 00:00 198/99 H 08/22/25 00:00 198/99 H 08/22/25 00:00 198/99 H 08/22/25 00:00 68 17 08/21/25 23:51 73 16 08/21/25 23:45 174/87 H 08/21/25 23:45 174/87 H 08/21/25 23:45 174/87 H 08/21/25 23:45 174/87 H 08/21/25 23:45 174/87 H 08/21/25 23:45 70 16 08/21/25 23:42 71 15 08/21/25 23:39 71 19 Pulse Ox Pulse Ox O2 Del Method O2 Del Method 08/22/25 08:06 96 Room Air 08/22/25 07:19 08/22/25 04:53 97 Room Air 08/22/25 04:49 97 Room Air 08/22/25 04:49 97 Room Air 08/22/25 04:32 Room Air 08/22/25 03:24 08/22/25 03:14 08/22/25 02:12 97 08/22/25 02:01 08/22/25 02:01 08/22/25 02:01 08/22/25 02:01 08/22/25 02:01 08/22/25 02:00 98 08/22/25 02:00 97 Room Air 08/22/25 01:51 99 08/22/25 01:45 99 08/22/25 01:45 08/22/25 01:45 08/22/25 01:45 08/22/25 01:45 08/22/25 01:45 08/22/25 01:42 99 08/22/25 01:30 98 08/22/25 01:30 08/22/25 01:30 08/22/25 01:30 08/22/25 01:30 08/22/25 01:30 08/22/25 01:21 98 08/22/25 01:15 98 08/22/25 01:15 08/22/25 01:15 08/22/25 01:15 08/22/25 01:15 08/22/25 01:15 08/22/25 01:12 98 08/22/25 01:04 08/22/25 01:04 08/22/25 01:04 08/22/25 01:04 08/22/25 01:04 08/22/25 01:03 99 08/22/25 01:00 98 08/22/25 01:00 08/22/25 01:00 08/22/25 01:00 08/22/25 01:00 08/22/25 00:51 99 08/22/25 00:45 98 08/22/25 00:45 08/22/25 00:45 08/22/25 00:45 08/22/25 00:45 08/22/25 00:45 08/22/25 00:42 99 08/22/25 00:30 08/22/25 00:30 08/22/25 00:30 08/22/25 00:30 08/22/25 00:30 08/22/25 00:30 99 08/22/25 00:21 98 08/22/25 00:12 08/22/25 00:00 08/22/25 00:00 08/22/25 00:00 08/22/25 00:00 08/22/25 00:00 08/22/25 00:00 08/21/25 23:51 08/21/25 23:45 08/21/25 23:45 08/21/25 23:45 08/21/25 23:45 08/21/25 23:45 08/21/25 23:45 08/21/25 23:42 08/21/25 23:39 Laboratory Results Short CBC 08/21/25 08/22/25 Range/Units 23:05 06:56 WBC 10.93 H 11.38 H (4.8-10.8) K/ul Hgb 13.5 L 13.2 L (14.0-18.0) g/dl Hct 41.2 L 39.5 L (42.0-52.0) % Plt Count 249 245 (130-400) K/uL BMP 08/21/25 08/22/25 23:05 06:55 Sodium 141 141 Potassium 3.7 3.9 Chloride 107 105 Carbon Dioxide 26 28 BUN 20 17 Creatinine 1.41 H 1.16 Glucose 114 H 122 H Calcium 9.4 9.1 Cardiac Enzymes 08/21/25 Range/Units 23:05 Total Creatine Kinase 96 (30-223) U/L Liver Function 08/21/25 Range/Units 23:05 Total Bilirubin 0.4 (0.2-1.0) mg/dl AST 14 (13-39) U/L ALT 6 L (7-52) U/L Alkaline Phosphatase 77 (34-104) U/L Albumin 4.0 (3.4-5.0) gm/dl Urine 08/22/25 Range/Units 00:20 Urine Color Yellow Urine Appearance Clear (Clear) Urine pH 7.0 (4.5-7.5) Ur Specific [place] 1.034 H (1.000-1.030) Urine Protein Negative (Negative) Urine Glucose (UA) Negative (Negative) Medications Administered Current Inpatient Medications Acetaminophen (Acetaminophen 325 Mg Tab) 650 mg PO Q4H PRN PRN Reason: Pain or Fever Stop: 09/21/25 04:48 Carbidopa/Levodopa (Carbidopa/Levodopa 25/100mg Tab) 1.5 tab PO QID [facility] Stop: 09/21/25 08:59 Last Admin: 08/22/25 09:58 Dose: 1.5 tab Dextrose (Dextrose 50% 50 Ml Syringe) 25 - 50 ml IV UD PRN; Protocol PRN Reason: Hypoglycemia Protocol Stop: 09/21/25 04:48 Glucagon (Glucagon For Inj 1 Mg Vial) 1 mg SQ UD PRN; Protocol PRN Reason: Hypoglycemia Protocol Stop: 09/21/25 04:48 Glucose (Glucose 40% Gel 15 Gm Tube) 15 - 30 gm PO UD PRN; Protocol PRN Reason: Hypoglycemia Protocol Stop: 09/21/25 04:48 Glucose (Glucose 10 Tab/Tube) 4 - 8 tab PO UD PRN; Protocol PRN Reason: Hypoglycemia Protocol Stop: 09/21/25 04:48 Heparin Sodium (Porcine) (Heparin Sod 5,000 Unit/0.5 Ml Vial) 5,000 units SQ Q8 [facility] Stop: 09/21/25 05:59 Last Admin: 08/22/25 06:14 Dose: 5,000 units Ceftriaxone Sodium (Rocephin) 2,000 mg in 50 mls @ 100 mls/hr IV Q24H [facility] Stop: 08/27/25 02:14 Insulin Aspart (Insulin Aspart Per Unit Charge) 0 units SC Q6 [facility] Stop: 09/21/25 05:59 Last Admin: 08/22/25 05:23 Dose: Not Given Insulin Glargine (Lantus Per Unit Charge) 20 units SQ BID KARLA Stop: 09/21/25 08:59 Last Admin: 08/22/25 09:58 Dose: 20 units Labetalol HCl (Labetalol Hcl Iv 5 Mg/Ml 20ml) 10 mg IV Q4H PRN PRN Reason: Hypertension Stop: 09/21/25 04:48 Latanoprost (Latanoprost 0.005% Op Soln 2.5 Ml Btl) 1 drops OPB HS KARLA Stop: 09/21/25 20:59 Miscellaneous (Carbohydrates For Hypoglycemia ) 15 - 30 gm PO UD PRN PRN Reason: Hypoglycemia Protocol Stop: 09/21/25 04:48 Miscellaneous (Fenofibrate 54 Mg - Order Awaiting Action) 1 each N/A QS [facility] Stop: 09/21/25 07:59 Last Admin: 08/22/25 09:53 Dose: Not Given Miscellaneous Information (Pharmacy Glycemic Mgmt Consult) 1 each N/A UD PRN; Protocol PRN Reason: Consult Stop: 09/21/25 04:48 Multivitamins/Minerals (Cerovite Adv Formula Tab) 1 tab PO QAM KARLA Stop: 09/21/25 08:59 Last Admin: 08/22/25 09:58 Dose: 1 tab Nitroglycerin (Nitroglycerin Sl 0.4 Mg/Tab Tab) 0.4 mg SL Q5M PRN PRN Reason: Chest Pain Stop: 09/21/25 04:48 Polyethylene Glycol (Polyethylene (Miralax) 17 Gm Pack) 17 gm PO DAILY PRN PRN Reason: Constipation Stop: 09/21/25 04:48 Simvastatin (Simvastatin 40 Mg Tab) 40 mg PO DAILY KARLA Stop: 09/21/25 08:59 Last Admin: 08/22/25 09:58 Dose: 40 mg
[2025-08-22 11:40] VITALS: O2SAT 95
--- NOTE | 2025-08-22 14:24 | Pharmacy Report ---
Pharmacy Glycemic Short Note 2 - Date of Service August 22, 2025 - Glycemic Short BSG Results (Last 24 hours): 08/21/25 08/21/25 08/22/25 23:05 23:15 04:38 Glucose 114 H POC Glucose 100 H POC Glucose (other) 112 H 08/22/25 08/22/25 08/22/25 06:55 07:42 12:01 Glucose 122 H POC Glucose 122 H 167 H POC Glucose (other) OUTPATIENT ANTIDIABETIC REGIMEN: * Novolin 70/30 - 72 units Qam, 42 units HS, metformin 500 mg bid, trulicity 1.5 mg SQ weekly ASSESSMENT: * 85 year old admitted s/p fall. Type 2 diabetic - pharmacy consulted for glycemic management. NPO this AM (received Lantus 20 units x 1). Diet now resuming at lunch time, will provide scale for Lantus at HS with reduced dosing vs. outpatient dosing as unclear what PO intake will be like. PLAN FOR INPATIENT GLYCEMIC CONTROL: * Hold outpatient oral diabetes medications * Basal insulin * Lantus 15-25 units SQ BID * Bolus insulin * NovoLog per scale ACHS or Q6hrs while NPO * Goal Range: Low 120 mg/dL - High 150 mg/dL * Correction Factor: 20 mg/dL/unit * Nutritional / Prandial insulin per carb ratio of 1 unit per 6 grams CHO consumed
[2025-08-22 14:32] VITALS: BP 168/84; PULSE 70
--- NOTE | 2025-08-22 14:58 | Discharge Summary ---
Date of Service August 22, 2025 Admission HPI Per Admitting Provider 85-year-old male with past medical history significant for type 2 diabetes, hypercholesterolemia, diabetic retinopathy, CKD stage IV, hypertension, primary parkinsonism, nonexudative macular degeneration, exudative macular degeneration comes because of fall and complaints of chest pain. Patient seems to fell backwards holding his recliner. Recliner fell on him. Seems took some time for him to take off the recliner. He was brought to the hospital. Complained of chest pain. Patient currently says the chest pain is better. Denies headache. Has some runny nose and sore throat. Says every morning he coughs up a lot of phlegm. Afebrile. Denies shortness of breath. Currently denies nausea. Denies abdominal pain. Normal bowel and bladder movements. Hemodynamics are okay. Not able to reach his son currently and confirm his medications from [facility] system. Past medical history. As mentioned above. Past surgical history. Injection of the right leg. Appendectomy. Social history. Lives alone. Quit smoking 1989. Smoked 1 pack a day for 26 years. No alcohol. No drug use. Family history. Brother had cancer. Mother had cancer. Father had GA. Brother had GA. Sister had lung cancer. Admission Exam Per Admitting Provider Physical Exam: General- Not in distress Head- atraumatic Eyes- PERRL. ENT- oropharynx clear Neck- supple, no JVD. Lungs- clear to auscultation no wheezing or crackles Heart- regular rhythm; no murmur, no gallop. Abdomen- normal bowel sounds, soft, nontender, no distension Extremities- mild pretibial edema present, no erythema seen Neuro- alert, oriented PERRL, no facial palsy; no dysarthria; moves extremities Principal Diagnosis Mechanical fall, UTI, chest pain Discharge Exam Sitting on a chair without any acute distress Constitutional well developed, well nourished, + ill appearing and + obese Eyes PERRL, conjunctivae normal, anicteric sclerae ENMT external ear and nose normal, oropharynx normal Neck trachea midline, no thyromegaly Respiratory + labored breathing; no respiratory distress Auscultation: lungs clear to auscultation bilaterally; no crackles Cardiovascular Rate/Rhythm: regular rate and regular rhythm; not tachycardic Heart Sounds: normal S1 and normal S2; no murmur Extremities: + edema (Trace edema bilaterally the patient. ) Gastrointestinal (Abdomen) Inspection/Auscultation: normal bowel sounds; abdomen not distended Percussion/Palpation: abdomen soft; abdomen nontender Neurologic normal touch/pain/proprioception and moves all extremities; no focal motor deficits Lymphatic no cervical or axillary lymphadenopathy Discharge Data Allergies Allergy/AdvReac Type Severity Reaction Status Date / Time ibuprofen AdvReac Unknown "BLEEDS IN Verified 07/01/25 08:32 STOMACH IF TAKES TOO MUCH" Consultations 08/22/25 01:21 ED Decision to Admit Stat 08/22/25 08:00 Consult Cardiology Routine Ordered Studies 08/21/25 23:05 CT chest diagnostic w con Stat 08/21/25 23:06 CT cervical spine wo con Stat Hospital Course (1) Fall: 85-year-old male with past medical history significant for type 2 diabetes, hypercholesterolemia, diabetic retinopathy, CKD stage IV, hypertension, primary parkinsonism, nonexudative macular degeneration, exudative macular degeneration comes because of fall and complaints of chest pain. Patient seems to fell backwards holding his recliner. Recliner fell on him. Seems took some time for him to take off the recliner. He was brought to the hospital. Complained of chest pain. Patient currently says the chest pain is better. Denies headache. Has some runny nose and sore throat. Says every morning he coughs up a lot of phlegm. Afebrile. Denies shortness of breath. Currently denies nausea. Denies abdominal pain. Normal bowel and bladder movements. Hemodynamics are okay. Not able to reach his son currently and confirm his medications from [facility] system. Mechanical fall with injury on the chest from the recliner May be complicated by Acute UTI and Parkinson's disease Empiric Rocephin pending Urine culture is pending Will get PT OT evaluation prior to discharge- did not test any longer in the hospital Urine culture is not back yet and the patient did not want to stay- was given total of 5 days course of antibiotic for possible UTI Chest pain Recliner fell on the chest CT chest and cervical spine ct ok EKG and serial cardiac enzymes remain unremarkable Appreciate cardiology input Remains free from any cardiac symptoms Did not want to stay in the hospital any longer and wanted to go home, taking the possible risk of cardiac contusion and heart attack. Type 2 diabetes Hold home insulin and p.o. medications Lantus and sliding scale Glycemic pharmacy consult Blood sugar ACHS Parkinson's Continue home medications Has significant tremors secondary to Parkinson diseaseWill continue current medications LEO and CKD stage IV Baseline creatinine 1.2 Presented creatinine 1.4 Holding lisinopril and Maxzide Follow repeat labs- kidney function is normal and will restart lisinopril Hypertension Holding lisinopril and Maxzide for ELO IV labetalol as needed Blood pressure remains on the upper side at 172/68 and will restart lisinopril Hyperlipidemia On statin and fenofibrate DVT prophylaxis Heparin subcu Disposition Med/telemetry Full code. Total Time Total Time Spent Total Time Spent (In Minutes): 35 Minutes Discharge Plan Discharge Items Patient Disposition: Home - Self-Care Reason For Visit: FALL, CHEST PAIN, UTI Discharge Diagnosis: Mechanical fall, UTI, chest pain Condition on Discharge: Fair Activity: Resume your previous activity Non-emergency contact: Primary Care Provider Call non-emergency contact if: you have any medication questions and your symptoms worsen Follow-up/Referrals: Abel Greer, [Primary Care Provider] - ( Your doctor's office will give you a call tomorrow with an appointment within 7 days) Diet: Carb Consistent or DM2 and Heart Healthy Addtl Attending Provider Instructions: Please take precautions to avoid falls Finish the course of antibiotic Please keep appointments with your healthcare provider Pending Studies at Discharge: Yes Studies:: Urine Culture and ECHO Stand-Alone Forms: My [facility] [employer], Smoking Cessation Medications and DC Order Prescriptions: New cephalexin 500 mg capsule 500 mg PO BID 5 Days Qty: 10 0RF Continued latanoprost 0.005 % drops 1 drp OPB HS metformin 500 mg tablet 500 mg PO BID lisinopril 20 mg tablet 20 mg PO BID Novolin 70/30 U-100 Insulin 100 unit/mL (70-30) suspension 72 unit SUBCUT UD Rx Instructions: 72 units in Am and 42units in PM simvastatin 40 mg tablet 40 mg PO DAILY triamterene-hydrochlorothiazid 37.5-25 mg tablet 1 tab PO DAILY carbidopa-levodopa 25-100 mg tablet 1.5 tab PO QID fenofibrate 54 mg tablet 54 mg PO DAILY Trulicity 1.5 mg/0.5 mL pen injector 1.5 mg SUBCUT WK PreserVision AREDS-2 250-90-40-1 mg Capsule 1 tab PO BID Discharge Orders: Discharge Order (Routine); Ordered 08/22/25 Ordered By: Kathryn Liu Admission Data Admit Date/Time: 08/22/25 02:51 Attending Provider: Kathryn Liu Admit Provider: Epifanio Juarez Primary Care Provider: Abel Greer Other Providers: Epifanio Juarez; Deric Morales Other Interventions: Discharge Summary Assessment (RN) Last Done: 08/22/25 14:31
--- NOTE | 2025-08-22 15:58 | XCELERA ---
[id number] [id number]
--- NOTE | 2025-08-22 16:13 | Communication Note ---
Date of Service: August 22, 2025 By CMS guidelines, a determination that the admission or continued stay is not medically necessary has been made by a member of the UR committee and a ph ysician for this hospital stay, therefore a Code 44 will be completed and the Inpatient admission will be changed to outpatient. MD Ismael
[2025-08-22] MEDS ORDERED: INSULIN ASPART PER UNIT CHARGE SC SCH (16:30)
[2025-08-22] MEDS ORDERED: LATANOPROST 0.005% OP SOLN 2.5 ML BTL OPB SCH (21:00)
[2025-08-22] MEDS ORDERED: LANTUS PER UNIT CHARGE SQ SCH (21:00)
[2025-08-23] MEDS ORDERED: cefTRIAXone SODIUM 2,000 MG/50 ML BAG IV SCH (03:00)
--- NOTE | 2025-08-24 10:36 | Electrocardiogram Report ---
Test Reason : Blood Pressure : */* mmHG Vent. Rate : 50 BPM Atrial Rate : 50 BPM P-R Int : 180 ms QRS Dur : 114 ms QT Int : 406 ms P-R-T Axes : * -4 171 degrees QTcB Int : 370 ms Sinus bradycardia Abnormal ECG When compared with ECG of 14-Apr-2020 07:55, No significant change Confirmed by Umesh Sanders ([id number]) on 08/24/2025 10:36:13 AM Referred By: REFERRED SELF Confirmed By: Umesh Sanders
== END 2025-08-22 15:20 | disposition home or self-care (01) | DRG 313 ==
LOC: ED 22:42 → 2N 08-22 02:51